=== PATIENT | male | born 1965 | race Caucasian/White ===

== ENCOUNTER 2021-05-07 19:33 | Inpatient (IN) | payer BC ==
[~2021-05-07] VITALS: Ht 165.1 cm; Wt 109.6 kg
[2021-05-07 21:36] LABS: Basophils # (auto) 0.1 10 ^3/uL (0-0.2); Basophils % (auto) 1.1 % (0.0-2.0); Eosinophils # (auto) 0 10 ^3/uL (0-0.8); Eosinophils % (auto) 0.1 % (0.0-7.0); Hematocrit 41.8 % (41.0-53.0); Hemoglobin 14.5 g/dL (13.5-17.5); Lymphocytes # (auto) 0.5 10 ^3/uL (0.4-5.4); Lymphocytes % (auto) 7.5 % (10.0-50.0); Mean Corpuscular Hemoglobin 30.7 pg (28.0-32.0); Mean Corpuscular Hgb Conc. 34.5 g/dL (32.0-36.0); Mean Corpuscular Volume 88.8 fL (80.0-100.0); Monocytes # (auto) 0.6 10 ^3/uL (0-1.3); Monocytes % (auto) 9.8 % (0.0-12.0); Neutrophils # (auto) 5.3 10 ^3/uL (1.6-8.6); Neutrophils % (auto) 81.5 % (37.0-80.0); Red Blood Cells 4.71 10^6/uL (4.5-5.90); Red Cell Distribution Width 12.9 % (11.8-14.3); White Blood Cell 6.5 10^3/uL (4.4-10.8)
[2021-05-07 21:55] LABS: Potassium 3.7 mmol/L (3.5-5.1)
[2021-05-07 22:09] LABS: Albumin 2.3 g/dL (3.4-5.0); BUN/Creatinine Ratio 18.2; Bilirubin, Total 0.8 mg/dL (0.2-1.0); Calcium 7.9 mg/dL (8.5-10.1); Total Protein 7.2 g/dL (6.4-8.2)
[2021-05-07 23:04] LABS: Lactic Acid w/Reflex 3.1 mmol/L (0.4-2.0)
[2021-05-08] VITALS (9 sets, daily range): BP systolic 87–102; BP diastolic 51–67
[2021-05-08] MEDS ORDERED: SUCCINYLCHOLINE CHLORIDE 20 MG/ML 10ML VIAL IV ONE ×2 (00:23→00:45)
[2021-05-08] MEDS ORDERED: KETAMINE HCL 10 ML ONE (00:26)
[2021-05-08] MEDS ORDERED: KETAMINE 50mg/ML 10ml Vial (500mg/10ml) IV ONE (00:45)
[2021-05-08] MEDS ORDERED: DexAMETHasone SOD PHOS 10MG/1ML VIAL INJ IV ONE (00:45)
[2021-05-08] MEDS ORDERED: MIDAZOLAM DRIP 50 mg/50mL 50 ML IV ONE (00:56)
[2021-05-08] MEDS: fentaNYL Drip 2500mCg/250mlNS 250 ML IV SCH (01:39)
[2021-05-08] MEDS: MIDAZOLAM DRIP 50 mg/50mL 50 ML IV SCH ×2 (01:39→22:50)
[2021-05-08] MEDS ORDERED: IOHEXOL 350 MG/ML 100ML IJ ONE (01:45)
[2021-05-08] MEDS: NOREPINEPHRINE 8 MG/250ML KIT 250 ML IV SCH ×2 (03:15→05:27)
[2021-05-08] MEDS: MAGNESIUM SULFATE 1GM/100ML 100 ML IV SCH ×2 (04:02→05:26)
[2021-05-08] MEDS ORDERED: MORPHINE SULFATE INJECTION 2 MG/ML SYRG IV PRN (06:30)
[2021-05-08] MEDS ORDERED: ONDANSETRON HCL 4 MG/2 ML VIAL IV PRN (06:30)
[2021-05-08] MEDS ORDERED: ALBUTEROL SULF HFA 90MCG INH 200DOSE IN PRN (06:30)
[2021-05-08] MEDS ORDERED: REMDESIVIR PER PHARMACY 0 ML IV SCH (06:30)
[2021-05-08] MEDS ORDERED: NITROGLYCERIN 0.4 MG SL TAB SL PRN (06:30)
[2021-05-08] MEDS ORDERED: SODIUM CHLORIDE 0.9% 1,000 ML IV SCH (06:30)
[2021-05-08] MEDS: cefTRIAXone 1GM/50ML D5W 50 ML IV SCH ×3 (07:04→08:52)
[2021-05-08 08:32] LABS: CRP High Sensitivity 16.2 mg/dL (< 0.3)
[2021-05-08 08:41] LABS: Magnesium 4.3 mg/dL (1.6-2.6)
[2021-05-08] MEDS: DexAMETHasone SOD PHOS 10MG/1ML VIAL INJ IV SCH (10:07)
[2021-05-08] MEDS: ENOXAPARIN SOD 40 MG/0.4 ML SYRINGE SC SCH ×2 (10:08→22:49)
[2021-05-08] MEDS: PANTOPRAZOLE 40 MG/10 ML VIAL INJ IV SCH (10:08)
[2021-05-08] MEDS: AZITHROMYCIN 500MG/ 250ML 250 ML IV SCH (10:27)
[2021-05-09] VITALS (43 sets, daily range): BP systolic 90–148; BP diastolic 55–83
[2021-05-09] MEDS: fentaNYL Drip 2500mCg/250mlNS 250 ML IV SCH (01:00)
[2021-05-09] MEDS: NOREPINEPHRINE 8 MG/250ML KIT 250 ML IV SCH (03:15)
[2021-05-09] MEDS: MIDAZOLAM DRIP 50 mg/50mL 50 ML IV SCH ×5 (03:49→21:31)
[2021-05-09] MEDS: cefTRIAXone 1GM/50ML D5W 50 ML IV SCH (08:49)
[2021-05-09 08:56] LABS: Basophils # (auto) 0 10 ^3/uL (0-0.2); Basophils % (auto) 0.2 % (0.0-2.0); Eosinophils # (auto) 0 10 ^3/uL (0-0.8); Hematocrit 40.1 % (41.0-53.0); Hemoglobin 13.4 g/dL (13.5-17.5); Lymphocytes # (auto) 0.5 10 ^3/uL (0.4-5.4); Lymphocytes % (auto) 6.3 % (10.0-50.0); Mean Corpuscular Hemoglobin 30.5 pg (28.0-32.0); Mean Corpuscular Hgb Conc. 33.4 g/dL (32.0-36.0); Mean Corpuscular Volume 91.4 fL (80.0-100.0); Neutrophils % (auto) 81.5 % (37.0-80.0); Red Blood Cells 4.39 10^6/uL (4.5-5.90); Red Cell Distribution Width 12.8 % (11.8-14.3); White Blood Cell 8.6 10^3/uL (4.4-10.8)
[2021-05-09 09:30] LABS: Albumin 2.1 g/dL (3.4-5.0); Potassium 4.5 mmol/L (3.5-5.1)
[2021-05-09 09:32] LABS: BUN/Creatinine Ratio 27.3; Bilirubin, Total 0.4 mg/dL (0.2-1.0); Total Protein 7.3 g/dL (6.4-8.2)
[2021-05-09] MEDS ORDERED: REMDESIVIR 200 MG in NS 210ml LOADING DOSE ADULT IV ONE (10:00)
[2021-05-09 10:28] LABS: Magnesium 4.2 mg/dL (1.6-2.6)
[2021-05-09] MEDS ORDERED: INSULIN LANTUS (GLARGINE) 1 /0.01ml (100units/ml) SC ONE (12:00)
[2021-05-09] MEDS: ACCU-CHEK COMFORT CURVE STRIP VI SCH ×2 (12:00→17:23)
[2021-05-09] MEDS: InsuLIN REG 1unit/0.01ml Soln (100units/ml) SC SCH ×2 (12:00→17:23)
[2021-05-09] MEDS ORDERED: DEXTROSE (50%) 50ML SYRG IV PRN (12:00)
[2021-05-09] MEDS: PANTOPRAZOLE 40 MG/10 ML VIAL INJ IV SCH (12:09)
[2021-05-09] MEDS: DexAMETHasone SOD PHOS 10MG/1ML VIAL INJ IV SCH (12:09)
[2021-05-09] MEDS: ENOXAPARIN SOD 40 MG/0.4 ML SYRINGE SC SCH ×2 (12:09→21:30)
[2021-05-09] MEDS: FUROSEMIDE 20 MG/2 ML VIAL IV SCH ×2 (13:14→17:47)
[2021-05-09] MEDS: AZITHROMYCIN 500MG/ 250ML 250 ML IV SCH (13:45)
[2021-05-10] VITALS (92 sets, daily range): BP systolic 87–133; BP diastolic 54–89
[2021-05-10] MEDS: InsuLIN REG 1unit/0.01ml Soln (100units/ml) SC SCH ×4 (00:24→17:05)
[2021-05-10] MEDS: ACCU-CHEK COMFORT CURVE STRIP VI SCH ×4 (00:24→17:11)
[2021-05-10] MEDS: fentaNYL Drip 2500mCg/250mlNS 250 ML IV SCH ×2 (02:13→14:27)
[2021-05-10] MEDS: NOREPINEPHRINE 8 MG/250ML KIT 250 ML IV SCH ×2 (03:15→17:05)
[2021-05-10 04:34] LABS: Basophils # (auto) 0 10 ^3/uL (0-0.2); Basophils % (auto) 0.2 % (0.0-2.0); Eosinophils # (auto) 0 10 ^3/uL (0-0.8); Hematocrit 39.2 % (41.0-53.0); Hemoglobin 13.1 g/dL (13.5-17.5); Lymphocytes # (auto) 0.6 10 ^3/uL (0.4-5.4); Lymphocytes % (auto) 5.3 % (10.0-50.0); Mean Corpuscular Hemoglobin 30.4 pg (28.0-32.0); Mean Corpuscular Hgb Conc. 33.6 g/dL (32.0-36.0); Mean Corpuscular Volume 90.7 fL (80.0-100.0); Monocytes # (auto) 1.6 10 ^3/uL (0-1.3); Monocytes % (auto) 13.5 % (0.0-12.0); Neutrophils # (auto) 9.4 10 ^3/uL (1.6-8.6); Red Blood Cells 4.32 10^6/uL (4.5-5.90); Red Cell Distribution Width 13.2 % (11.8-14.3); White Blood Cell 11.6 10^3/uL (4.4-10.8)
[2021-05-10 04:49] LABS: Potassium 4.2 mmol/L (3.5-5.1)
[2021-05-10 04:54] LABS: BUN/Creatinine Ratio 35.6; Bilirubin, Total 0.3 mg/dL (0.2-1.0); Calcium 7.5 mg/dL (8.5-10.1); Total Protein 6.4 g/dL (6.4-8.2)
[2021-05-10] MEDS: MIDAZOLAM DRIP 50 mg/50mL 50 ML IV SCH ×4 (05:17→15:36)
[2021-05-10] MEDS: FUROSEMIDE 20 MG/2 ML VIAL IV SCH ×2 (06:28→17:20)
[2021-05-10] MEDS: cefTRIAXone 1GM/50ML D5W 50 ML IV SCH (09:00)
[2021-05-10] MEDS: AZITHROMYCIN 500MG/ 250ML 250 ML IV SCH (09:32)
[2021-05-10] MEDS: PANTOPRAZOLE 40 MG/10 ML VIAL INJ IV SCH (09:32)
[2021-05-10] MEDS: DexAMETHasone SOD PHOS 10MG/1ML VIAL INJ IV SCH (09:33)
[2021-05-10] MEDS: ENOXAPARIN SOD 40 MG/0.4 ML SYRINGE SC SCH ×2 (09:35→21:10)
[2021-05-10] MEDS: INSULIN LANTUS (GLARGINE) 1 /0.01ml (100units/ml) SC SCH (09:38)
[2021-05-10] MEDS: REMDESIVIR 100mg 100 MG in SODIUM CHL 0.9% 230 ML IV SCH (15:07)
[2021-05-11] VITALS (69 sets, daily range): BP systolic 89–129; BP diastolic 51–86
[2021-05-11] MEDS: ACCU-CHEK COMFORT CURVE STRIP VI SCH ×5 (00:34→23:49)
[2021-05-11] MEDS: MIDAZOLAM DRIP 50 mg/50mL 50 ML IV SCH ×5 (00:36→19:11)
[2021-05-11] MEDS: InsuLIN REG 1unit/0.01ml Soln (100units/ml) SC SCH ×5 (00:36→23:50)
[2021-05-11] MEDS: fentaNYL Drip 2500mCg/250mlNS 250 ML IV SCH ×2 (02:17→13:25)
[2021-05-11] MEDS ORDERED: VANCOMYCIN PER PHARMACY 0 MG IV SCH (03:30)
[2021-05-11] MEDS ORDERED: VANCOMYCIN 1,500 MG in D5W 5% 250 ML IV ONE (03:30)
[2021-05-11 04:30] LABS: Albumin 1.8 g/dL (3.4-5.0); BUN/Creatinine Ratio 35.9; Calcium 7.5 mg/dL (8.5-10.1); Potassium 4.4 mmol/L (3.5-5.1)
[2021-05-11 04:32] LABS: Bilirubin, Total 0.3 mg/dL (0.2-1.0)
[2021-05-11 05:02] LABS: Basophils # (auto) 0 10 ^3/uL (0-0.2); Basophils % (auto) 0.1 % (0.0-2.0); Eosinophils # (auto) 0 10 ^3/uL (0-0.8); Hematocrit 39.2 % (41.0-53.0); Hemoglobin 13.1 g/dL (13.5-17.5); Lymphocytes # (auto) 0.4 10 ^3/uL (0.4-5.4); Mean Corpuscular Hemoglobin 30.3 pg (28.0-32.0); Mean Corpuscular Hgb Conc. 33.4 g/dL (32.0-36.0); Mean Corpuscular Volume 90.9 fL (80.0-100.0); Monocytes % (auto) 13.1 % (0.0-12.0); Neutrophils # (auto) 6.1 10 ^3/uL (1.6-8.6); Neutrophils % (auto) 80.8 % (37.0-80.0); Nucleated Red Blood Cells % 0.1 %; Red Blood Cells 4.31 10^6/uL (4.5-5.90); White Blood Cell 7.5 10^3/uL (4.4-10.8)
[2021-05-11] MEDS: FUROSEMIDE 20 MG/2 ML VIAL IV SCH ×2 (06:23→17:26)
[2021-05-11] MEDS: cefTRIAXone 1GM/50ML D5W 50 ML IV SCH (08:04)
[2021-05-11] MEDS: PANTOPRAZOLE 40 MG/10 ML VIAL INJ IV SCH (10:06)
[2021-05-11] MEDS: DexAMETHasone SOD PHOS 10MG/1ML VIAL INJ IV SCH (10:06)
[2021-05-11] MEDS: ZINC SULFATE 220mg CAP or TAB PO SCH (10:07)
[2021-05-11] MEDS: AZITHROMYCIN 500MG/ 250ML 250 ML IV SCH (10:07)
[2021-05-11] MEDS: CHOLECALCIFEROL (VITD3) 2,000 UNIT CAP/TAB PO SCH (10:08)
[2021-05-11] MEDS: ASCORBIC ACID 500 MG TAB PO SCH (10:08)
[2021-05-11] MEDS: INSULIN LANTUS (GLARGINE) 1 /0.01ml (100units/ml) SC SCH (10:09)
[2021-05-11] MEDS: ENOXAPARIN SOD 40 MG/0.4 ML SYRINGE SC SCH ×2 (10:10→22:34)
[2021-05-11] MEDS: REMDESIVIR 100mg 100 MG in SODIUM CHL 0.9% 230 ML IV SCH (15:00)
[2021-05-11] MEDS: VANCOMYCIN 1GM/250ML 250 ML IV SCH (17:27)
[2021-05-12] VITALS (43 sets, daily range): BP systolic 90–132; BP diastolic 58–89
[2021-05-12] MEDS: VANCOMYCIN 1GM/250ML 250 ML IV SCH ×3 (02:49→23:22)
[2021-05-12] MEDS: NOREPINEPHRINE 8 MG/250ML KIT 250 ML IV SCH (02:49)
[2021-05-12] MEDS: fentaNYL Drip 2500mCg/250mlNS 250 ML IV SCH ×3 (02:52→23:20)
[2021-05-12 04:17] LABS: Basophils # (auto) 0 10 ^3/uL (0-0.2); Basophils % (auto) 0.3 % (0.0-2.0); Eosinophils # (auto) 0 10 ^3/uL (0-0.8); Hematocrit 41.5 % (41.0-53.0); Hemoglobin 13.8 g/dL (13.5-17.5); Lymphocytes % (auto) 11.6 % (10.0-50.0); Mean Corpuscular Hemoglobin 30.2 pg (28.0-32.0); Mean Corpuscular Hgb Conc. 33.2 g/dL (32.0-36.0); Monocytes # (auto) 1.2 10 ^3/uL (0-1.3); Monocytes % (auto) 14.5 % (0.0-12.0); Neutrophils # (auto) 6.2 10 ^3/uL (1.6-8.6); Neutrophils % (auto) 73.6 % (37.0-80.0); Nucleated Red Blood Cells % 0.3 %; Red Blood Cells 4.56 10^6/uL (4.5-5.90); Red Cell Distribution Width 13.3 % (11.8-14.3); White Blood Cell 8.5 10^3/uL (4.4-10.8)
[2021-05-12 04:29] LABS: Calcium 7.5 mg/dL (8.5-10.1); Potassium 4.4 mmol/L (3.5-5.1)
[2021-05-12 04:38] LABS: BUN/Creatinine Ratio 35.3; Bilirubin, Total 0.4 mg/dL (0.2-1.0); CRP High Sensitivity 3.47 mg/dL (< 0.3); Total Protein 6.2 g/dL (6.4-8.2)
[2021-05-12] MEDS: ACCU-CHEK COMFORT CURVE STRIP VI SCH ×3 (06:53→17:46)
[2021-05-12] MEDS: InsuLIN REG 1unit/0.01ml Soln (100units/ml) SC SCH ×3 (06:54→17:46)
[2021-05-12] MEDS: FUROSEMIDE 20 MG/2 ML VIAL IV SCH ×2 (06:54→17:12)
[2021-05-12] MEDS: cefTRIAXone 1GM/50ML D5W 50 ML IV SCH (08:45)
[2021-05-12] MEDS: MIDAZOLAM DRIP 50 mg/50mL 50 ML IV SCH ×3 (08:46→23:21)
[2021-05-12] MEDS: AZITHROMYCIN 500MG/ 250ML 250 ML IV SCH (09:30)
[2021-05-12] MEDS: ASCORBIC ACID 500 MG TAB PO SCH (09:31)
[2021-05-12] MEDS: CHOLECALCIFEROL (VITD3) 2,000 UNIT CAP/TAB PO SCH (09:32)
[2021-05-12] MEDS: ENOXAPARIN SOD 40 MG/0.4 ML SYRINGE SC SCH ×2 (09:33→23:15)
[2021-05-12] MEDS: DexAMETHasone SOD PHOS 10MG/1ML VIAL INJ IV SCH (09:33)
[2021-05-12] MEDS: ZINC SULFATE 220mg CAP or TAB PO SCH (09:33)
[2021-05-12] MEDS: PANTOPRAZOLE 40 MG/10 ML VIAL INJ IV SCH (09:33)
[2021-05-12] MEDS: INSULIN LANTUS (GLARGINE) 1 /0.01ml (100units/ml) SC SCH (09:36)
[2021-05-12] MEDS: REMDESIVIR 100mg 100 MG in SODIUM CHL 0.9% 230 ML IV SCH (15:00)
[2021-05-12] MEDS: Glucerna 1.2 Cal 1Liter BOTTLE GT SCH (17:13)
[2021-05-12] MEDS: ACETAMINOPHEN 500 MG TAB PO PRN (17:14)
[2021-05-13] VITALS (51 sets, daily range): BP systolic 92–157; BP diastolic 53–83
[2021-05-13] MEDS: InsuLIN REG 1unit/0.01ml Soln (100units/ml) SC SCH ×5 (01:13→23:46)
[2021-05-13] MEDS: ACCU-CHEK COMFORT CURVE STRIP VI SCH ×5 (01:13→23:38)
[2021-05-13] MEDS: NOREPINEPHRINE 8 MG/250ML KIT 250 ML IV SCH (01:17)
[2021-05-13 04:18] LABS: Basophils # (auto) 0 10 ^3/uL (0-0.2); Basophils % (auto) 0.1 % (0.0-2.0); Eosinophils # (auto) 0 10 ^3/uL (0-0.8); Hematocrit 41.7 % (41.0-53.0); Lymphocytes # (auto) 0.7 10 ^3/uL (0.4-5.4); Lymphocytes % (auto) 9.9 % (10.0-50.0); Mean Corpuscular Hemoglobin 30.8 pg (28.0-32.0); Mean Corpuscular Hgb Conc. 33.7 g/dL (32.0-36.0); Mean Corpuscular Volume 91.5 fL (80.0-100.0); Monocytes # (auto) 1.2 10 ^3/uL (0-1.3); Monocytes % (auto) 15.7 % (0.0-12.0); Neutrophils # (auto) 5.6 10 ^3/uL (1.6-8.6); Neutrophils % (auto) 74.3 % (37.0-80.0); Red Blood Cells 4.56 10^6/uL (4.5-5.90); Red Cell Distribution Width 13.4 % (11.8-14.3); White Blood Cell 7.6 10^3/uL (4.4-10.8)
[2021-05-13 04:42] LABS: Albumin 1.9 g/dL (3.4-5.0); Potassium 4.3 mmol/L (3.5-5.1)
[2021-05-13 04:45] LABS: BUN/Creatinine Ratio 36.9
[2021-05-13 04:48] LABS: Bilirubin, Total 0.4 mg/dL (0.2-1.0)
[2021-05-13] MEDS: FUROSEMIDE 20 MG/2 ML VIAL IV SCH ×2 (05:26→18:04)
[2021-05-13] MEDS: cefTRIAXone 1GM/50ML D5W 50 ML IV SCH (09:29)
[2021-05-13] MEDS: VANCOMYCIN 1GM/250ML 250 ML IV SCH ×2 (10:01→18:04)
[2021-05-13] MEDS: DexAMETHasone SOD PHOS 10MG/1ML VIAL INJ IV SCH (11:16)
[2021-05-13] MEDS: ZINC SULFATE 220mg CAP or TAB PO SCH (11:16)
[2021-05-13] MEDS: PANTOPRAZOLE 40 MG/10 ML VIAL INJ IV SCH (11:16)
[2021-05-13] MEDS: ASCORBIC ACID 500 MG TAB PO SCH (11:16)
[2021-05-13] MEDS: CHOLECALCIFEROL (VITD3) 2,000 UNIT CAP/TAB PO SCH (11:17)
[2021-05-13] MEDS: ENOXAPARIN SOD 40 MG/0.4 ML SYRINGE SC SCH ×2 (11:17→23:38)
[2021-05-13] MEDS: INSULIN LANTUS (GLARGINE) 1 /0.01ml (100units/ml) SC SCH (12:53)
[2021-05-13] MEDS ORDERED: DEXTROSE (50%) 50ML SYRG IV PRN (12:58)
[2021-05-13] MEDS: REMDESIVIR 100mg 100 MG in SODIUM CHL 0.9% 230 ML IV SCH (15:25)
[2021-05-13] MEDS: MIDAZOLAM DRIP 50 mg/50mL 50 ML IV SCH (23:39)
[2021-05-14] VITALS (64 sets, daily range): BP systolic 87–129; BP diastolic 48–83
[2021-05-14] MEDS: fentaNYL Drip 2500mCg/250mlNS 250 ML IV SCH (01:00)
[2021-05-14] MEDS: NOREPINEPHRINE 8 MG/250ML KIT 250 ML IV SCH (03:15)
[2021-05-14 03:39] LABS: Basophils # (auto) 0 10 ^3/uL (0-0.2); Basophils % (auto) 0.2 % (0.0-2.0); Eosinophils # (auto) 0 10 ^3/uL (0-0.8); Eosinophils % (auto) 0.1 % (0.0-7.0); Hematocrit 41.7 % (41.0-53.0); Hemoglobin 13.9 g/dL (13.5-17.5); Lymphocytes # (auto) 0.7 10 ^3/uL (0.4-5.4); Lymphocytes % (auto) 9.7 % (10.0-50.0); Mean Corpuscular Hemoglobin 30.2 pg (28.0-32.0); Mean Corpuscular Hgb Conc. 33.4 g/dL (32.0-36.0); Mean Corpuscular Volume 90.5 fL (80.0-100.0); Monocytes # (auto) 0.9 10 ^3/uL (0-1.3); Monocytes % (auto) 12.6 % (0.0-12.0); Neutrophils # (auto) 5.6 10 ^3/uL (1.6-8.6); Neutrophils % (auto) 77.4 % (37.0-80.0); Nucleated Red Blood Cells % 0.1 %; Red Blood Cells 4.61 10^6/uL (4.5-5.90); White Blood Cell 7.2 10^3/uL (4.4-10.8)
[2021-05-14 04:04] LABS: Potassium 4.6 mmol/L (3.5-5.1)
[2021-05-14 04:08] LABS: Albumin 1.8 g/dL (3.4-5.0); BUN/Creatinine Ratio 49.1; Bilirubin, Total 0.4 mg/dL (0.2-1.0); Magnesium 2.3 mg/dL (1.6-2.6); Total Protein 5.8 g/dL (6.4-8.2)
[2021-05-14] MEDS: VANCOMYCIN 1GM/250ML 250 ML IV SCH ×3 (04:16→23:19)
[2021-05-14] MEDS: InsuLIN REG 1unit/0.01ml Soln (100units/ml) SC SCH ×3 (06:25→18:00)
[2021-05-14] MEDS: FUROSEMIDE 20 MG/2 ML VIAL IV SCH ×2 (06:27→18:20)
[2021-05-14] MEDS: ACCU-CHEK COMFORT CURVE STRIP VI SCH ×3 (06:27→18:20)
[2021-05-14] MEDS: cefTRIAXone 1GM/50ML D5W 50 ML IV SCH (09:22)
[2021-05-14] MEDS: DexAMETHasone SOD PHOS 10MG/1ML VIAL INJ IV SCH (09:54)
[2021-05-14] MEDS: PANTOPRAZOLE 40 MG/10 ML VIAL INJ IV SCH (09:54)
[2021-05-14] MEDS: ZINC SULFATE 220mg CAP or TAB PO SCH (09:54)
[2021-05-14] MEDS: CHOLECALCIFEROL (VITD3) 2,000 UNIT CAP/TAB PO SCH (09:55)
[2021-05-14] MEDS: ENOXAPARIN SOD 40 MG/0.4 ML SYRINGE SC SCH ×2 (09:56→23:19)
[2021-05-14] MEDS: ASCORBIC ACID 500 MG TAB PO SCH (09:56)
[2021-05-14] MEDS: INSULIN LANTUS (GLARGINE) 1 /0.01ml (100units/ml) SC SCH (10:19)
[2021-05-14] MEDS: MIDAZOLAM DRIP 50 mg/50mL 50 ML IV SCH ×3 (10:20→23:19)
[2021-05-15] VITALS (57 sets, daily range): BP systolic 84–133; BP diastolic 46–82
[2021-05-15] MEDS: MIDAZOLAM DRIP 50 mg/50mL 50 ML IV SCH (00:39)
[2021-05-15] MEDS: ACCU-CHEK COMFORT CURVE STRIP VI SCH ×4 (00:42→18:01)
[2021-05-15] MEDS: InsuLIN REG 1unit/0.01ml Soln (100units/ml) SC SCH ×4 (00:42→18:01)
[2021-05-15] MEDS: fentaNYL Drip 2500mCg/250mlNS 250 ML IV SCH (00:45)
[2021-05-15] MEDS: NOREPINEPHRINE 8 MG/250ML KIT 250 ML IV SCH ×2 (03:15→13:32)
[2021-05-15 03:50] LABS: Basophils # (auto) 0.1 10 ^3/uL (0-0.2); Basophils % (auto) 0.6 % (0.0-2.0); Eosinophils # (auto) 0 10 ^3/uL (0-0.8); Hematocrit 42.2 % (41.0-53.0); Hemoglobin 14.2 g/dL (13.5-17.5); Lymphocytes # (auto) 1.1 10 ^3/uL (0.4-5.4); Lymphocytes % (auto) 11.6 % (10.0-50.0); Mean Corpuscular Hemoglobin 30.6 pg (28.0-32.0); Mean Corpuscular Hgb Conc. 33.7 g/dL (32.0-36.0); Mean Corpuscular Volume 90.9 fL (80.0-100.0); Monocytes # (auto) 1.1 10 ^3/uL (0-1.3); Monocytes % (auto) 11.5 % (0.0-12.0); Neutrophils # (auto) 7.1 10 ^3/uL (1.6-8.6); Neutrophils % (auto) 76.3 % (37.0-80.0); Red Blood Cells 4.64 10^6/uL (4.5-5.90); Red Cell Distribution Width 13.2 % (11.8-14.3); White Blood Cell 9.3 10^3/uL (4.4-10.8)
[2021-05-15 04:07] LABS: BUN/Creatinine Ratio 36.8; Calcium 8.3 mg/dL (8.5-10.1); Potassium 4.1 mmol/L (3.5-5.1)
[2021-05-15] MEDS: VANCOMYCIN 1GM/250ML 250 ML IV SCH ×2 (05:52→15:09)
[2021-05-15] MEDS: FUROSEMIDE 20 MG/2 ML VIAL IV SCH ×2 (06:46→17:38)
[2021-05-15] MEDS: cefTRIAXone 1GM/50ML D5W 50 ML IV SCH (09:13)
[2021-05-15] MEDS: INSULIN LANTUS (GLARGINE) 1 /0.01ml (100units/ml) SC SCH (10:00)
[2021-05-15] MEDS: PANTOPRAZOLE 40 MG/10 ML VIAL INJ IV SCH (10:02)
[2021-05-15] MEDS: ZINC SULFATE 220mg CAP or TAB PO SCH (10:02)
[2021-05-15] MEDS: ASCORBIC ACID 500 MG TAB PO SCH (10:03)
[2021-05-15] MEDS: CHOLECALCIFEROL (VITD3) 2,000 UNIT CAP/TAB PO SCH (10:03)
[2021-05-15] MEDS: ENOXAPARIN SOD 40 MG/0.4 ML SYRINGE SC SCH (10:04)
[2021-05-15] MEDS: DexAMETHasone SOD PHOS 10MG/1ML VIAL INJ IV SCH (10:04)
[2021-05-16] VITALS (69 sets, daily range): BP systolic 92–189; BP diastolic 56–93
[2021-05-16] MEDS: InsuLIN REG 1unit/0.01ml Soln (100units/ml) SC SCH ×4 (00:18→18:20)
[2021-05-16] MEDS: fentaNYL Drip 2500mCg/250mlNS 250 ML IV SCH (00:30)
[2021-05-16] MEDS: VANCOMYCIN 1GM/250ML 250 ML IV SCH ×3 (00:31→18:23)
[2021-05-16] MEDS: ACCU-CHEK COMFORT CURVE STRIP VI SCH ×4 (00:31→18:21)
[2021-05-16] MEDS: MIDAZOLAM DRIP 50 mg/50mL 50 ML IV SCH (00:32)
[2021-05-16] MEDS: ENOXAPARIN SOD 40 MG/0.4 ML SYRINGE SC SCH ×3 (00:36→21:42)
[2021-05-16 04:08] LABS: Basophils # (auto) 0 10 ^3/uL (0-0.2); Basophils % (auto) 0.2 % (0.0-2.0); Eosinophils # (auto) 0 10 ^3/uL (0-0.8); Eosinophils % (auto) 0.3 % (0.0-7.0); Hematocrit 44.1 % (41.0-53.0); Hemoglobin 14.7 g/dL (13.5-17.5); Lymphocytes # (auto) 0.8 10 ^3/uL (0.4-5.4); Lymphocytes % (auto) 7.6 % (10.0-50.0); Mean Corpuscular Hemoglobin 30.5 pg (28.0-32.0); Mean Corpuscular Hgb Conc. 33.4 g/dL (32.0-36.0); Mean Corpuscular Volume 91.3 fL (80.0-100.0); Monocytes % (auto) 9.2 % (0.0-12.0); Neutrophils # (auto) 9.2 10 ^3/uL (1.6-8.6); Neutrophils % (auto) 82.7 % (37.0-80.0); Nucleated Red Blood Cells % 0.1 %; Red Blood Cells 4.83 10^6/uL (4.5-5.90); Red Cell Distribution Width 13.5 % (11.8-14.3); White Blood Cell 11.1 10^3/uL (4.4-10.8)
[2021-05-16 04:23] LABS: BUN/Creatinine Ratio 33.3; Calcium 8.5 mg/dL (8.5-10.1); Potassium 4.8 mmol/L (3.5-5.1)
[2021-05-16] MEDS: FUROSEMIDE 20 MG/2 ML VIAL IV SCH ×2 (05:55→18:22)
[2021-05-16] MEDS: cefTRIAXone 1GM/50ML D5W 50 ML IV SCH (08:00)
[2021-05-16] MEDS: CHOLECALCIFEROL (VITD3) 2,000 UNIT CAP/TAB PO SCH (11:08)
[2021-05-16] MEDS: ASCORBIC ACID 500 MG TAB PO SCH (11:09)
[2021-05-16] MEDS: ZINC SULFATE 220mg CAP or TAB PO SCH (11:09)
[2021-05-16] MEDS: PANTOPRAZOLE 40 MG/10 ML VIAL INJ IV SCH (11:10)
[2021-05-16] MEDS: DexAMETHasone SOD PHOS 10MG/1ML VIAL INJ IV SCH (11:10)
[2021-05-16] MEDS: INSULIN LANTUS (GLARGINE) 1 /0.01ml (100units/ml) SC SCH (11:12)
[2021-05-17] VITALS (56 sets, daily range): BP systolic 82–148; BP diastolic 48–88
[2021-05-17] MEDS: ACCU-CHEK COMFORT CURVE STRIP VI SCH ×5 (00:22→23:39)
[2021-05-17] MEDS: InsuLIN REG 1unit/0.01ml Soln (100units/ml) SC SCH ×5 (00:23→23:39)
[2021-05-17] MEDS: MIDAZOLAM DRIP 50 mg/50mL 50 ML IV SCH ×2 (01:00→14:02)
[2021-05-17] MEDS: VANCOMYCIN 1GM/250ML 250 ML IV SCH (03:00)
[2021-05-17] MEDS: NOREPINEPHRINE 8 MG/250ML KIT 250 ML IV SCH (03:15)
[2021-05-17 04:59] LABS: Basophils # (auto) 0 10 ^3/uL (0-0.2); Basophils % (auto) 0.1 % (0.0-2.0); Eosinophils # (auto) 0 10 ^3/uL (0-0.8); Hematocrit 40.5 % (41.0-53.0); Hemoglobin 14.1 g/dL (13.5-17.5); Lymphocytes # (auto) 0.8 10 ^3/uL (0.4-5.4); Mean Corpuscular Hemoglobin 31.5 pg (28.0-32.0); Mean Corpuscular Hgb Conc. 34.8 g/dL (32.0-36.0); Mean Corpuscular Volume 90.5 fL (80.0-100.0); Monocytes % (auto) 10.5 % (0.0-12.0); Neutrophils # (auto) 7.8 10 ^3/uL (1.6-8.6); Neutrophils % (auto) 81.4 % (37.0-80.0); Red Blood Cells 4.47 10^6/uL (4.5-5.90); Red Cell Distribution Width 12.8 % (11.8-14.3); White Blood Cell 9.5 10^3/uL (4.4-10.8)
[2021-05-17 05:32] LABS: Calcium 8.6 mg/dL (8.5-10.1); Potassium 3.4 mmol/L (3.5-5.1)
[2021-05-17 05:34] LABS: BUN/Creatinine Ratio 39.3
[2021-05-17] MEDS: fentaNYL Drip 2500mCg/250mlNS 250 ML IV SCH (05:50)
[2021-05-17] MEDS: FUROSEMIDE 20 MG/2 ML VIAL IV SCH ×2 (06:00→19:44)
[2021-05-17] MEDS: PANTOPRAZOLE 40 MG/10 ML VIAL INJ IV SCH (08:48)
[2021-05-17] MEDS: DexAMETHasone SOD PHOS 10MG/1ML VIAL INJ IV SCH (08:49)
[2021-05-17] MEDS: ASCORBIC ACID 500 MG TAB PO SCH (08:50)
[2021-05-17] MEDS: CHOLECALCIFEROL (VITD3) 2,000 UNIT CAP/TAB PO SCH (08:51)
[2021-05-17] MEDS: ENOXAPARIN SOD 40 MG/0.4 ML SYRINGE SC SCH ×2 (08:51→22:38)
[2021-05-17] MEDS: ZINC SULFATE 220mg CAP or TAB PO SCH (08:51)
[2021-05-17] MEDS: cefTRIAXone 1GM/50ML D5W 50 ML IV SCH (08:52)
[2021-05-17] MEDS: INSULIN LANTUS (GLARGINE) 1 /0.01ml (100units/ml) SC SCH (10:40)
[2021-05-18] VITALS (56 sets, daily range): BP systolic 91–134; BP diastolic 54–91
[2021-05-18] MEDS: fentaNYL Drip 2500mCg/250mlNS 250 ML IV SCH (01:00)
[2021-05-18 04:21] LABS: Basophils # (auto) 0 10 ^3/uL (0-0.2); Basophils % (auto) 0.1 % (0.0-2.0); Eosinophils # (auto) 0 10 ^3/uL (0-0.8); Hematocrit 40.1 % (41.0-53.0); Hemoglobin 13.4 g/dL (13.5-17.5); Lymphocytes # (auto) 1.2 10 ^3/uL (0.4-5.4); Lymphocytes % (auto) 10.7 % (10.0-50.0); Mean Corpuscular Hemoglobin 30.4 pg (28.0-32.0); Mean Corpuscular Hgb Conc. 33.4 g/dL (32.0-36.0); Monocytes # (auto) 1.3 10 ^3/uL (0-1.3); Monocytes % (auto) 11.1 % (0.0-12.0); Neutrophils % (auto) 78.1 % (37.0-80.0); Nucleated Red Blood Cells % 0.1 %; Red Blood Cells 4.41 10^6/uL (4.5-5.90); Red Cell Distribution Width 13.1 % (11.8-14.3); White Blood Cell 11.6 10^3/uL (4.4-10.8)
[2021-05-18 04:51] LABS: Calcium 7.9 mg/dL (8.5-10.1); Potassium 3.3 mmol/L (3.5-5.1)
[2021-05-18 04:53] LABS: BUN/Creatinine Ratio 31.3
[2021-05-18] MEDS: FUROSEMIDE 20 MG/2 ML VIAL IV SCH (05:42)
[2021-05-18] MEDS: InsuLIN REG 1unit/0.01ml Soln (100units/ml) SC SCH ×4 (06:42→23:47)
[2021-05-18] MEDS: ACCU-CHEK COMFORT CURVE STRIP VI SCH ×4 (06:43→23:47)
[2021-05-18] MEDS: cefTRIAXone 1GM/50ML D5W 50 ML IV SCH (09:36)
[2021-05-18] MEDS: PANTOPRAZOLE 40 MG/10 ML VIAL INJ IV SCH (09:37)
[2021-05-18] MEDS: DexAMETHasone SOD PHOS 10MG/1ML VIAL INJ IV SCH (09:37)
[2021-05-18] MEDS: CHOLECALCIFEROL (VITD3) 2,000 UNIT CAP/TAB PO SCH (09:43)
[2021-05-18] MEDS: ZINC SULFATE 220mg CAP or TAB PO SCH (09:43)
[2021-05-18] MEDS: ASCORBIC ACID 500 MG TAB PO SCH (09:43)
[2021-05-18] MEDS: ENOXAPARIN SOD 40 MG/0.4 ML SYRINGE SC SCH ×2 (09:44→21:44)
[2021-05-18] MEDS: MIDAZOLAM DRIP 50 mg/50mL 50 ML IV SCH ×2 (09:51→16:11)
[2021-05-18] MEDS: INSULIN LANTUS (GLARGINE) 1 /0.01ml (100units/ml) SC SCH (09:59)
[2021-05-18] MEDS ORDERED: POTASSIUM EFFERVESENT TAB 25 MEQ GT ONE ×2 (10:30→15:30)
[2021-05-18] MEDS: NOREPINEPHRINE 8 MG/250ML KIT 250 ML IV SCH (12:28)
[2021-05-18] MEDS: ERGOCALCIFEROL 50,000 UNIT(1.25MG) CAP PO SCH (12:31)
[2021-05-19] VITALS (50 sets, daily range): BP systolic 84–122; BP diastolic 50–86
[2021-05-19] MEDS: MIDAZOLAM DRIP 50 mg/50mL 50 ML IV SCH ×2 (00:36→05:28)
[2021-05-19] MEDS: fentaNYL Drip 2500mCg/250mlNS 250 ML IV SCH (01:22)
[2021-05-19] MEDS: NOREPINEPHRINE 8 MG/250ML KIT 250 ML IV SCH (03:15)
[2021-05-19 03:40] LABS: Basophils # (auto) 0 10 ^3/uL (0-0.2); Basophils % (auto) 0.1 % (0.0-2.0); Eosinophils # (auto) 0 10 ^3/uL (0-0.8); Hematocrit 41.3 % (41.0-53.0); Hemoglobin 13.5 g/dL (13.5-17.5); Lymphocytes # (auto) 0.9 10 ^3/uL (0.4-5.4); Lymphocytes % (auto) 8.6 % (10.0-50.0); Mean Corpuscular Hemoglobin 29.9 pg (28.0-32.0); Mean Corpuscular Hgb Conc. 32.7 g/dL (32.0-36.0); Mean Corpuscular Volume 91.4 fL (80.0-100.0); Monocytes % (auto) 9.2 % (0.0-12.0); Neutrophils # (auto) 8.9 10 ^3/uL (1.6-8.6); Neutrophils % (auto) 82.1 % (37.0-80.0); Red Blood Cells 4.51 10^6/uL (4.5-5.90); Red Cell Distribution Width 13.2 % (11.8-14.3); White Blood Cell 10.8 10^3/uL (4.4-10.8)
[2021-05-19 04:00] LABS: BUN/Creatinine Ratio 29.6; Magnesium 2.3 mg/dL (1.6-2.6); Potassium 4.2 mmol/L (3.5-5.1)
[2021-05-19] MEDS: ACCU-CHEK COMFORT CURVE STRIP VI SCH ×4 (06:29→23:03)
[2021-05-19] MEDS: InsuLIN REG 1unit/0.01ml Soln (100units/ml) SC SCH ×4 (06:30→23:03)
[2021-05-19] MEDS: cefTRIAXone 1GM/50ML D5W 50 ML IV SCH (11:44)
[2021-05-19] MEDS: DexAMETHasone SOD PHOS 10MG/1ML VIAL INJ IV SCH (11:44)
[2021-05-19] MEDS: PANTOPRAZOLE 40 MG/10 ML VIAL INJ IV SCH (11:45)
[2021-05-19] MEDS: FUROSEMIDE 20 MG/2 ML VIAL IV SCH (11:45)
[2021-05-19] MEDS: ZINC SULFATE 220mg CAP or TAB PO SCH (11:45)
[2021-05-19] MEDS: ASCORBIC ACID 500 MG TAB PO SCH (11:45)
[2021-05-19] MEDS: CHOLECALCIFEROL (VITD3) 2,000 UNIT CAP/TAB PO SCH (11:46)
[2021-05-19] MEDS: INSULIN LANTUS (GLARGINE) 1 /0.01ml (100units/ml) SC SCH (11:47)
[2021-05-19] MEDS: ENOXAPARIN SOD 40 MG/0.4 ML SYRINGE SC SCH ×2 (11:49→20:09)
[2021-05-20] VITALS (40 sets, daily range): BP systolic 78–129; BP diastolic 45–84
[2021-05-20] MEDS: fentaNYL Drip 2500mCg/250mlNS 250 ML IV SCH ×2 (01:00→10:55)
[2021-05-20] MEDS: NOREPINEPHRINE 8 MG/250ML KIT 250 ML IV SCH (03:15)
[2021-05-20] MEDS: ACCU-CHEK COMFORT CURVE STRIP VI SCH ×3 (04:03→12:36)
[2021-05-20] MEDS: InsuLIN REG 1unit/0.01ml Soln (100units/ml) SC SCH ×3 (04:03→19:11)
[2021-05-20] MEDS: cefTRIAXone 1GM/50ML D5W 50 ML IV SCH ×2 (09:36→12:07)
[2021-05-20] MEDS: DexAMETHasone SOD PHOS 10MG/1ML VIAL INJ IV SCH (09:36)
[2021-05-20] MEDS: ZINC SULFATE 220mg CAP or TAB PO SCH (09:37)
[2021-05-20] MEDS: PANTOPRAZOLE 40 MG/10 ML VIAL INJ IV SCH (09:37)
[2021-05-20] MEDS: FUROSEMIDE 20 MG/2 ML VIAL IV SCH (09:37)
[2021-05-20] MEDS: ASCORBIC ACID 500 MG TAB PO SCH (09:39)
[2021-05-20] MEDS: CHOLECALCIFEROL (VITD3) 2,000 UNIT CAP/TAB PO SCH (09:40)
[2021-05-20] MEDS: ENOXAPARIN SOD 40 MG/0.4 ML SYRINGE SC SCH ×2 (09:42→22:00)
[2021-05-20] MEDS: INSULIN LANTUS (GLARGINE) 1 /0.01ml (100units/ml) SC SCH (10:00)
[2021-05-20] MEDS: MIDAZOLAM DRIP 50 mg/50mL 50 ML IV SCH (18:39)
[2021-05-21] VITALS (100 sets, daily range): BP systolic 78–137; BP diastolic 37–113
[2021-05-21] MEDS: InsuLIN REG 1unit/0.01ml Soln (100units/ml) SC SCH ×4 (01:47→18:22)
[2021-05-21 04:19] LABS: Basophils # (auto) 0 10 ^3/uL (0-0.2); Eosinophils # (auto) 0 10 ^3/uL (0-0.8); Hematocrit 48.1 % (41.0-53.0); Hemoglobin 15.8 g/dL (13.5-17.5); Lymphocytes # (auto) 0.9 10 ^3/uL (0.4-5.4); Lymphocytes % (auto) 7.3 % (10.0-50.0); Mean Corpuscular Volume 90.9 fL (80.0-100.0); Monocytes # (auto) 1.3 10 ^3/uL (0-1.3); Monocytes % (auto) 9.9 % (0.0-12.0); Neutrophils # (auto) 10.5 10 ^3/uL (1.6-8.6); Neutrophils % (auto) 82.8 % (37.0-80.0); Red Blood Cells 5.28 10^6/uL (4.5-5.90); Red Cell Distribution Width 13.4 % (11.8-14.3); White Blood Cell 12.7 10^3/uL (4.4-10.8)
[2021-05-21 05:04] LABS: Albumin 2.5 g/dL (3.4-5.0); BUN/Creatinine Ratio 38.3; Bilirubin, Total 0.8 mg/dL (0.2-1.0); Calcium 8.8 mg/dL (8.5-10.1); Total Protein 7.4 g/dL (6.4-8.2)
[2021-05-21] MEDS: ACCU-CHEK COMFORT CURVE STRIP VI SCH ×4 (06:47→18:22)
[2021-05-21] MEDS: NOREPINEPHRINE 8 MG/250ML KIT 250 ML IV SCH ×2 (07:00→20:30)
[2021-05-21] MEDS: FUROSEMIDE 20 MG/2 ML VIAL IV SCH (09:49)
[2021-05-21] MEDS: DexAMETHasone SOD PHOS 10MG/1ML VIAL INJ IV SCH (09:49)
[2021-05-21] MEDS: CHOLECALCIFEROL (VITD3) 2,000 UNIT CAP/TAB PO SCH (09:49)
[2021-05-21] MEDS: ZINC SULFATE 220mg CAP or TAB PO SCH (09:49)
[2021-05-21] MEDS: ASCORBIC ACID 500 MG TAB PO SCH (09:49)
[2021-05-21] MEDS: PANTOPRAZOLE 40 MG/10 ML VIAL INJ IV SCH (09:49)
[2021-05-21] MEDS: ENOXAPARIN SOD 40 MG/0.4 ML SYRINGE SC SCH ×2 (09:49→22:07)
[2021-05-21] MEDS: INSULIN LANTUS (GLARGINE) 1 /0.01ml (100units/ml) SC SCH (10:00)
[2021-05-21] MEDS: Glucerna 1.2 Cal 1Liter BOTTLE GT SCH (14:00)
[2021-05-21] MEDS: MIDAZOLAM DRIP 50 mg/50mL 50 ML IV SCH (14:20)
[2021-05-21] MEDS: fentaNYL Drip 2500mCg/250mlNS 250 ML IV SCH (14:21)
[2021-05-22] VITALS (81 sets, daily range): BP systolic 62–153; BP diastolic 37–94
[2021-05-22] MEDS: MIDAZOLAM DRIP 50 mg/50mL 50 ML IV SCH (04:30)
[2021-05-22 04:34] LABS: Basophils # (auto) 0 10 ^3/uL (0-0.2); Basophils % (auto) 0.2 % (0.0-2.0); Eosinophils # (auto) 0 10 ^3/uL (0-0.8); Eosinophils % (auto) 0.1 % (0.0-7.0); Hemoglobin 12.2 g/dL (13.5-17.5); Lymphocytes # (auto) 1.9 10 ^3/uL (0.4-5.4); Lymphocytes % (auto) 12.7 % (10.0-50.0); Mean Corpuscular Hemoglobin 30.4 pg (28.0-32.0); Mean Corpuscular Hgb Conc. 33.7 g/dL (32.0-36.0); Monocytes # (auto) 1.4 10 ^3/uL (0-1.3); Monocytes % (auto) 9.5 % (0.0-12.0); Neutrophils # (auto) 11.6 10 ^3/uL (1.6-8.6); Neutrophils % (auto) 77.5 % (37.0-80.0); Red Cell Distribution Width 13.1 % (11.8-14.3)
[2021-05-22 04:47] LABS: Calcium 8.4 mg/dL (8.5-10.1); Potassium 3.4 mmol/L (3.5-5.1)
[2021-05-22 04:49] LABS: BUN/Creatinine Ratio 43.1
[2021-05-22] MEDS: InsuLIN REG 1unit/0.01ml Soln (100units/ml) SC SCH ×4 (06:34→18:17)
[2021-05-22] MEDS: ACCU-CHEK COMFORT CURVE STRIP VI SCH ×4 (06:34→18:15)
[2021-05-22] MEDS: cefTRIAXone 1GM/50ML D5W 50 ML IV SCH (09:00)
[2021-05-22] MEDS: ASCORBIC ACID 500 MG TAB PO SCH (10:20)
[2021-05-22] MEDS: PANTOPRAZOLE 40 MG/10 ML VIAL INJ IV SCH (10:20)
[2021-05-22] MEDS: ZINC SULFATE 220mg CAP or TAB PO SCH (10:20)
[2021-05-22] MEDS: DexAMETHasone SOD PHOS 10MG/1ML VIAL INJ IV SCH (10:20)
[2021-05-22] MEDS: FUROSEMIDE 20 MG/2 ML VIAL IV SCH (10:20)
[2021-05-22] MEDS: ENOXAPARIN SOD 40 MG/0.4 ML SYRINGE SC SCH (10:20)
[2021-05-22] MEDS: CHOLECALCIFEROL (VITD3) 2,000 UNIT CAP/TAB PO SCH (10:20)
[2021-05-22] MEDS: INSULIN LANTUS (GLARGINE) 1 /0.01ml (100units/ml) SC SCH (10:23)
[2021-05-22] MEDS ORDERED: POTASSIUM CHL 20MEQ/50ML 50 ML IV ONE (12:00)
[2021-05-22] MEDS: ACETAMINOPHEN 500 MG TAB PO PRN (12:48)
[2021-05-23] VITALS (60 sets, daily range): BP systolic 91–161; BP diastolic 58–91
[2021-05-23] MEDS: ACCU-CHEK COMFORT CURVE STRIP VI SCH ×4 (00:17→17:53)
[2021-05-23] MEDS: ENOXAPARIN SOD 40 MG/0.4 ML SYRINGE SC SCH ×3 (00:19→23:59)
[2021-05-23] MEDS: InsuLIN REG 1unit/0.01ml Soln (100units/ml) SC SCH ×4 (00:22→17:56)
[2021-05-23] MEDS: NOREPINEPHRINE 8 MG/250ML KIT 250 ML IV SCH (03:15)
[2021-05-23 06:02] LABS: Basophils # (auto) 0 10 ^3/uL (0-0.2); Basophils % (auto) 0.3 % (0.0-2.0); Eosinophils # (auto) 0 10 ^3/uL (0-0.8); Eosinophils % (auto) 0.1 % (0.0-7.0); Hematocrit 42.3 % (41.0-53.0); Hemoglobin 14.3 g/dL (13.5-17.5); Lymphocytes # (auto) 1.5 10 ^3/uL (0.4-5.4); Lymphocytes % (auto) 12.1 % (10.0-50.0); Mean Corpuscular Hemoglobin 30.7 pg (28.0-32.0); Mean Corpuscular Hgb Conc. 33.9 g/dL (32.0-36.0); Mean Corpuscular Volume 90.8 fL (80.0-100.0); Monocytes % (auto) 7.9 % (0.0-12.0); Neutrophils # (auto) 9.9 10 ^3/uL (1.6-8.6); Neutrophils % (auto) 79.6 % (37.0-80.0); Nucleated Red Blood Cells % 0.1 %; Red Blood Cells 4.66 10^6/uL (4.5-5.90); Red Cell Distribution Width 13.2 % (11.8-14.3); White Blood Cell 12.4 10^3/uL (4.4-10.8)
[2021-05-23] MEDS: cefTRIAXone 1GM/50ML D5W 50 ML IV SCH (08:59)
[2021-05-23] MEDS: FUROSEMIDE 20 MG/2 ML VIAL IV SCH (09:42)
[2021-05-23] MEDS: ASCORBIC ACID 500 MG TAB PO SCH (09:42)
[2021-05-23] MEDS: ZINC SULFATE 220mg CAP or TAB PO SCH (09:42)
[2021-05-23] MEDS: CHOLECALCIFEROL (VITD3) 2,000 UNIT CAP/TAB PO SCH (09:42)
[2021-05-23] MEDS: INSULIN LANTUS (GLARGINE) 1 /0.01ml (100units/ml) SC SCH (09:43)
[2021-05-23] MEDS: DexAMETHasone SOD PHOS 10MG/1ML VIAL INJ IV SCH (09:45)
[2021-05-23] MEDS: PANTOPRAZOLE 40 MG/10 ML VIAL INJ IV SCH (10:00)
[2021-05-23] MEDS: fentaNYL Drip 2500mCg/250mlNS 250 ML IV SCH (11:21)
[2021-05-23] MEDS: Glucerna 1.2 Cal 1Liter BOTTLE GT SCH (14:00)
[2021-05-23] MEDS: ACETAMINOPHEN 500 MG TAB PO PRN (17:12)
[2021-05-24] VITALS (34 sets, daily range): BP systolic 95–145; BP diastolic 61–90
[2021-05-24] MEDS: NOREPINEPHRINE 8 MG/250ML KIT 250 ML IV SCH
[2021-05-24] MEDS: fentaNYL Drip 2500mCg/250mlNS 250 ML IV SCH ×3 (00:01→17:46)
[2021-05-24] MEDS: MIDAZOLAM DRIP 50 mg/50mL 50 ML IV SCH ×2 (00:01→17:47)
[2021-05-24] MEDS: InsuLIN REG 1unit/0.01ml Soln (100units/ml) SC SCH ×4 (01:13→17:44)
[2021-05-24 05:20] LABS: Basophils # (auto) 0 10 ^3/uL (0-0.2); Basophils % (auto) 0.4 % (0.0-2.0); Eosinophils # (auto) 0 10 ^3/uL (0-0.8); Eosinophils % (auto) 0.4 % (0.0-7.0); Hemoglobin 14.8 g/dL (13.5-17.5); Lymphocytes # (auto) 1.6 10 ^3/uL (0.4-5.4); Mean Corpuscular Hemoglobin 30.6 pg (28.0-32.0); Mean Corpuscular Hgb Conc. 33.6 g/dL (32.0-36.0); Mean Corpuscular Volume 91.1 fL (80.0-100.0); Monocytes # (auto) 0.9 10 ^3/uL (0-1.3); Monocytes % (auto) 7.3 % (0.0-12.0); Neutrophils # (auto) 9.1 10 ^3/uL (1.6-8.6); Neutrophils % (auto) 77.9 % (37.0-80.0); Nucleated Red Blood Cells % 0.1 %; Red Blood Cells 4.83 10^6/uL (4.5-5.90); Red Cell Distribution Width 13.3 % (11.8-14.3); White Blood Cell 11.7 10^3/uL (4.4-10.8)
[2021-05-24] MEDS: ACCU-CHEK COMFORT CURVE STRIP VI SCH ×4 (05:20→17:44)
[2021-05-24 05:24] LABS: Chloride 107 mmol/L (98-107); Potassium 4.3 mmol/L (3.5-5.1); Sodium 141 mmol/L (136-145)
[2021-05-24] MEDS: ACETAMINOPHEN 500 MG TAB PO PRN ×2 (05:27→17:30)
[2021-05-24 05:28] LABS: Alanine Aminotransferase 30 U/L (16-61); Albumin 2.1 g/dL (3.4-5.0); Anion Gap 7 (5-15); BUN/Creatinine Ratio 32.9; Blood Urea Nitrogen 24 mg/dL (7-18); Calcium 8.8 mg/dL (8.5-10.1); Carbon Dioxide 27 mmol/L (21-32); GFR African American 142 mL/min; GFR Non-African American 118 mL/min; Glucose 197 mg/dL (74-106); Magnesium 2.5 mg/dL (1.6-2.6)
[2021-05-24 05:30] LABS: Alkaline Phosphatase 77 U/L (45-117); Aspartate Aminotransferase 23 U/L (15-37); Bilirubin, Total 0.7 mg/dL (0.2-1.0); Total Protein 7.4 g/dL (6.4-8.2)
[2021-05-24] MEDS: DexAMETHasone SOD PHOS 10MG/1ML VIAL INJ IV SCH (09:26)
[2021-05-24] MEDS: cefTRIAXone 1GM/50ML D5W 50 ML IV SCH (09:26)
[2021-05-24] MEDS: FUROSEMIDE 20 MG/2 ML VIAL IV SCH (09:27)
[2021-05-24] MEDS: PANTOPRAZOLE 40 MG/10 ML VIAL INJ IV SCH (09:27)
[2021-05-24] MEDS: ZINC SULFATE 220mg CAP or TAB PO SCH (09:28)
[2021-05-24] MEDS: CHOLECALCIFEROL (VITD3) 2,000 UNIT CAP/TAB PO SCH (09:28)
[2021-05-24] MEDS: ENOXAPARIN SOD 40 MG/0.4 ML SYRINGE SC SCH (09:29)
[2021-05-24] MEDS: ASCORBIC ACID 500 MG TAB PO SCH (09:30)
[2021-05-24] MEDS: INSULIN LANTUS (GLARGINE) 1 /0.01ml (100units/ml) SC SCH (10:06)
[2021-05-25] VITALS (25 sets, daily range): BP systolic 100–150; BP diastolic 57–95
[2021-05-25] MEDS: NOREPINEPHRINE 8 MG/250ML KIT 250 ML IV SCH (00:01)
[2021-05-25] MEDS: InsuLIN REG 1unit/0.01ml Soln (100units/ml) SC SCH ×4 (01:23→18:00)
[2021-05-25] MEDS: MIDAZOLAM DRIP 50 mg/50mL 50 ML IV SCH ×4 (01:23→19:00)
[2021-05-25] MEDS: Glucerna 1.2 Cal 1Liter BOTTLE GT SCH (01:23)
[2021-05-25] MEDS: ACETAMINOPHEN 500 MG TAB PO PRN (01:25)
[2021-05-25] MEDS: ACCU-CHEK COMFORT CURVE STRIP VI SCH ×4 (05:15→18:00)
[2021-05-25] MEDS ORDERED: DOPamine 1600MCG/ML D5W 250 ML IV ONE (09:05)
[2021-05-25] MEDS ORDERED: LORazepam 2MG/ML-1ML VIAL IV ONE (09:30)
[2021-05-25] MEDS: DOPamine 1600MCG/ML D5W 250 ML IV SCH ×2 (09:30→20:37)
[2021-05-25 10:00] LABS: Urine Bacteria NONE SEEN /hpf (None Seen); Urine Blood 1+ /uL (Negative); Urine Mucus FEW (None Seen); Urine Specific Gravity 1.044 (1.001-1.035); Urine WBC 9 /hpf (0 - 3)
[2021-05-25] MEDS: DexAMETHasone SOD PHOS 10MG/1ML VIAL INJ IV SCH (11:06)
[2021-05-25] MEDS: FUROSEMIDE 20 MG/2 ML VIAL IV SCH (11:06)
[2021-05-25] MEDS: PANTOPRAZOLE 40 MG/10 ML VIAL INJ IV SCH (11:07)
[2021-05-25] MEDS: CHOLECALCIFEROL (VITD3) 2,000 UNIT CAP/TAB PO SCH (11:07)
[2021-05-25] MEDS: ENOXAPARIN SOD 40 MG/0.4 ML SYRINGE SC SCH ×3 (11:07→22:49)
[2021-05-25] MEDS: ASCORBIC ACID 500 MG TAB PO SCH (11:07)
[2021-05-25] MEDS: ZINC SULFATE 220mg CAP or TAB PO SCH (11:07)
[2021-05-25] MEDS: INSULIN LANTUS (GLARGINE) 1 /0.01ml (100units/ml) SC SCH (11:10)
[2021-05-25] MEDS: ERGOCALCIFEROL 50,000 UNIT(1.25MG) CAP PO SCH (13:15)
[2021-05-26] VITALS (50 sets, daily range): BP systolic 100–139; BP diastolic 61–106
[2021-05-26] MEDS: InsuLIN REG 1unit/0.01ml Soln (100units/ml) SC SCH ×5 (01:41→18:59)
[2021-05-26] MEDS: ACCU-CHEK COMFORT CURVE STRIP VI SCH ×8 (02:36→23:31)
[2021-05-26] MEDS: NOREPINEPHRINE 8 MG/250ML KIT 250 ML IV SCH (03:15)
[2021-05-26] MEDS: MIDAZOLAM DRIP 50 mg/50mL 50 ML IV SCH ×2 (04:00)
[2021-05-26 04:26] LABS: Basophils # (auto) 0 10 ^3/uL (0-0.2); Basophils % (auto) 0.2 % (0.0-2.0); Eosinophils # (auto) 0 10 ^3/uL (0-0.8); Hematocrit 39.8 % (41.0-53.0); Hemoglobin 13.9 g/dL (13.5-17.5); Lymphocytes # (auto) 1.2 10 ^3/uL (0.4-5.4); Lymphocytes % (auto) 14.1 % (10.0-50.0); Mean Corpuscular Hemoglobin 31.7 pg (28.0-32.0); Mean Corpuscular Volume 90.4 fL (80.0-100.0); Monocytes # (auto) 0.5 10 ^3/uL (0-1.3); Monocytes % (auto) 5.9 % (0.0-12.0); Neutrophils # (auto) 6.9 10 ^3/uL (1.6-8.6); Neutrophils % (auto) 79.8 % (37.0-80.0); Red Cell Distribution Width 13.4 % (11.8-14.3); White Blood Cell 8.6 10^3/uL (4.4-10.8)
[2021-05-26 04:37] LABS: Potassium 3.9 mmol/L (3.5-5.1)
[2021-05-26 04:47] LABS: Calcium 8.1 mg/dL (8.5-10.1); Magnesium 3.2 mg/dL (1.6-2.6); Phosphorus 2.8 mg/dL (2.5-4.90)
[2021-05-26] MEDS: fentaNYL Drip 2500mCg/250mlNS 250 ML IV SCH (05:19)
[2021-05-26] MEDS: DOPamine 1600MCG/ML D5W 250 ML IV SCH ×2 (07:44→18:51)
[2021-05-26] MEDS: FUROSEMIDE 20 MG/2 ML VIAL IV SCH (11:04)
[2021-05-26] MEDS: DexAMETHasone SOD PHOS 10MG/1ML VIAL INJ IV SCH (11:04)
[2021-05-26] MEDS: PANTOPRAZOLE 40 MG/10 ML VIAL INJ IV SCH (11:05)
[2021-05-26] MEDS: ZINC SULFATE 220mg CAP or TAB PO SCH (11:05)
[2021-05-26] MEDS: CHOLECALCIFEROL (VITD3) 2,000 UNIT CAP/TAB PO SCH (11:05)
[2021-05-26] MEDS: ASCORBIC ACID 500 MG TAB PO SCH (11:05)
[2021-05-26] MEDS: ENOXAPARIN SOD 40 MG/0.4 ML SYRINGE SC SCH ×2 (11:07→23:30)
[2021-05-26] MEDS: INSULIN LANTUS (GLARGINE) 1 /0.01ml (100units/ml) SC SCH (11:07)
[2021-05-26] MEDS ORDERED: DEXTROSE (50%) 50ML SYRG IV PRN (11:30)
[2021-05-26] MEDS: FREE WATER GT SCH ×3 (15:14→23:30)
[2021-05-27] VITALS (18 sets, daily range): BP systolic 94–136; BP diastolic 51–77
[2021-05-27] MEDS: NOREPINEPHRINE 8 MG/250ML KIT 250 ML IV SCH ×2 (03:15→20:00)
[2021-05-27] MEDS: InsuLIN REG 1unit/0.01ml Soln (100units/ml) SC SCH ×4 (03:21→18:00)
[2021-05-27] MEDS: fentaNYL Drip 2500mCg/250mlNS 250 ML IV SCH ×2 (03:23→05:15)
[2021-05-27 04:57] LABS: Basophils # (auto) 0 10 ^3/uL (0-0.2); Basophils % (auto) 0.1 % (0.0-2.0); Eosinophils # (auto) 0 10 ^3/uL (0-0.8); Hematocrit 37.9 % (41.0-53.0); Hemoglobin 12.9 g/dL (13.5-17.5); Lymphocytes # (auto) 1.1 10 ^3/uL (0.4-5.4); Lymphocytes % (auto) 16.8 % (10.0-50.0); Mean Corpuscular Hemoglobin 30.9 pg (28.0-32.0); Mean Corpuscular Hgb Conc. 33.9 g/dL (32.0-36.0); Mean Corpuscular Volume 91.1 fL (80.0-100.0); Monocytes # (auto) 0.4 10 ^3/uL (0-1.3); Monocytes % (auto) 6.6 % (0.0-12.0); Neutrophils # (auto) 5.2 10 ^3/uL (1.6-8.6); Neutrophils % (auto) 76.5 % (37.0-80.0); Nucleated Red Blood Cells % 0.1 %; Red Blood Cells 4.16 10^6/uL (4.5-5.90); Red Cell Distribution Width 13.3 % (11.8-14.3); White Blood Cell 6.8 10^3/uL (4.4-10.8)
[2021-05-27 05:12] LABS: BUN/Creatinine Ratio 37.9; Calcium 8.6 mg/dL (8.5-10.1); Potassium 4.6 mmol/L (3.5-5.1)
[2021-05-27] MEDS: FREE WATER GT SCH ×6 (05:15→22:00)
[2021-05-27] MEDS: ACCU-CHEK COMFORT CURVE STRIP VI SCH ×6 (05:16→18:14)
[2021-05-27] MEDS: DOPamine 1600MCG/ML D5W 250 ML IV SCH ×2 (05:18→17:05)
[2021-05-27] MEDS: ACETYLCYSTEINE 10 %(100MG/ML) SOL 4ML NEB SCH ×3 (06:00→19:21)
[2021-05-27] MEDS ORDERED: acetaZOLAMIDE SODIUM 500 MG VL IV ONE (09:00)
[2021-05-27] MEDS: ENOXAPARIN SOD 40 MG/0.4 ML SYRINGE SC SCH ×2 (10:00→22:00)
[2021-05-27] MEDS: INSULIN LANTUS (GLARGINE) 1 /0.01ml (100units/ml) SC SCH (10:00)
[2021-05-27] MEDS: PANTOPRAZOLE 40 MG/10 ML VIAL INJ IV SCH (10:00)
[2021-05-27] MEDS: CHOLECALCIFEROL (VITD3) 2,000 UNIT CAP/TAB PO SCH (10:00)
[2021-05-27] MEDS: ASCORBIC ACID 500 MG TAB PO SCH (10:00)
[2021-05-27] MEDS: ZINC SULFATE 220mg CAP or TAB PO SCH (10:00)
[2021-05-27] MEDS: MIDAZOLAM DRIP 50 mg/50mL 50 ML IV SCH (10:50)
[2021-05-27] MEDS: ALBUTEROL SULF 2.5 MG/0.5ML(0.5%) NEB SOLN NEB SCH ×2 (11:35→19:21)
[2021-05-28] VITALS (14 sets, daily range): BP systolic 103–134; BP diastolic 61–81
[2021-05-28] MEDS: FREE WATER GT SCH ×6 (02:00→22:12)
[2021-05-28 05:07] LABS: Basophils # (auto) 0 10 ^3/uL (0-0.2); Basophils % (auto) 0.2 % (0.0-2.0); Eosinophils # (auto) 0 10 ^3/uL (0-0.8); Eosinophils % (auto) 0.3 % (0.0-7.0); Hematocrit 39.3 % (41.0-53.0); Lymphocytes # (auto) 1.6 10 ^3/uL (0.4-5.4); Lymphocytes % (auto) 12.6 % (10.0-50.0); Mean Corpuscular Hemoglobin 30.5 pg (28.0-32.0); Mean Corpuscular Hgb Conc. 33.2 g/dL (32.0-36.0); Monocytes # (auto) 0.5 10 ^3/uL (0-1.3); Monocytes % (auto) 4.1 % (0.0-12.0); Neutrophils # (auto) 10.3 10 ^3/uL (1.6-8.6); Neutrophils % (auto) 82.8 % (37.0-80.0); Nucleated Red Blood Cells % 0.2 %; Red Blood Cells 4.27 10^6/uL (4.5-5.90); Red Cell Distribution Width 13.4 % (11.8-14.3); White Blood Cell 12.5 10^3/uL (4.4-10.8)
[2021-05-28 05:32] LABS: Potassium 3.7 mmol/L (3.5-5.1)
[2021-05-28 05:39] LABS: BUN/Creatinine Ratio 28.8; Calcium 8.1 mg/dL (8.5-10.1)
[2021-05-28] MEDS: ALBUTEROL SULF 2.5 MG/0.5ML(0.5%) NEB SOLN NEB SCH ×4 (06:00→19:18)
[2021-05-28] MEDS: ACCU-CHEK COMFORT CURVE STRIP VI SCH ×8 (06:07→18:00)
[2021-05-28] MEDS: InsuLIN REG 1unit/0.01ml Soln (100units/ml) SC SCH ×4 (06:09→18:00)
[2021-05-28] MEDS: ACETYLCYSTEINE 10 %(100MG/ML) SOL 4ML NEB SCH ×4 (09:00→19:19)
[2021-05-28] MEDS: CHOLECALCIFEROL (VITD3) 2,000 UNIT CAP/TAB PO SCH (09:46)
[2021-05-28] MEDS: ASCORBIC ACID 500 MG TAB PO SCH (09:46)
[2021-05-28] MEDS: PANTOPRAZOLE 40 MG/10 ML VIAL INJ IV SCH (09:46)
[2021-05-28] MEDS: ZINC SULFATE 220mg CAP or TAB PO SCH (09:46)
[2021-05-28] MEDS: ENOXAPARIN SOD 40 MG/0.4 ML SYRINGE SC SCH ×2 (09:52→22:11)
[2021-05-28] MEDS: INSULIN LANTUS (GLARGINE) 1 /0.01ml (100units/ml) SC SCH (09:52)
[2021-05-28] MEDS: DOPamine 1600MCG/ML D5W 250 ML IV SCH (15:19)
[2021-05-28 17:08] LABS: INR 1.23 (0.9-1.15)
[2021-05-28] MEDS ORDERED: fentaNYL Drip 2500mCg/250mlNS 250 ML IV SCH (19:45)
[2021-05-29] VITALS (55 sets, daily range): BP systolic 91–149; BP diastolic 48–73
[2021-05-29] MEDS: ACCU-CHEK COMFORT CURVE STRIP VI SCH ×8 (00:02→18:34)
[2021-05-29] MEDS: InsuLIN REG 1unit/0.01ml Soln (100units/ml) SC SCH ×4 (00:07→18:36)
[2021-05-29] MEDS: MIDAZOLAM DRIP 50 mg/50mL 50 ML IV SCH ×3 (01:11→16:47)
[2021-05-29] MEDS: FREE WATER GT SCH ×6 (02:00→21:26)
[2021-05-29] MEDS: fentaNYL Drip 2500mCg/250mlNS 250 ML IV SCH ×2 (02:10→10:53)
[2021-05-29] MEDS: DOPamine 1600MCG/ML D5W 250 ML IV SCH (02:26)
[2021-05-29] MEDS: NOREPINEPHRINE 8 MG/250ML KIT 250 ML IV SCH (03:15)
[2021-05-29 06:22] LABS: Basophils # (auto) 0 10 ^3/uL (0-0.2); Basophils % (auto) 0.3 % (0.0-2.0); Eosinophils # (auto) 0.2 10 ^3/uL (0-0.8); Eosinophils % (auto) 1.9 % (0.0-7.0); Hematocrit 35.3 % (41.0-53.0); Lymphocytes # (auto) 1.1 10 ^3/uL (0.4-5.4); Lymphocytes % (auto) 11.2 % (10.0-50.0); Mean Corpuscular Hemoglobin 30.9 pg (28.0-32.0); Mean Corpuscular Hgb Conc. 33.9 g/dL (32.0-36.0); Mean Corpuscular Volume 91.3 fL (80.0-100.0); Monocytes # (auto) 0.4 10 ^3/uL (0-1.3); Monocytes % (auto) 4.4 % (0.0-12.0); Neutrophils # (auto) 7.8 10 ^3/uL (1.6-8.6); Neutrophils % (auto) 82.2 % (37.0-80.0); Nucleated Red Blood Cells % 0.1 %; Red Blood Cells 3.87 10^6/uL (4.5-5.90); Red Cell Distribution Width 13.3 % (11.8-14.3); White Blood Cell 9.4 10^3/uL (4.4-10.8)
[2021-05-29] MEDS: ALBUTEROL SULF 2.5 MG/0.5ML(0.5%) NEB SOLN NEB SCH ×4 (06:25→18:09)
[2021-05-29] MEDS: ACETYLCYSTEINE 10 %(100MG/ML) SOL 4ML NEB SCH ×4 (06:25→18:09)
[2021-05-29 06:48] LABS: Calcium 7.9 mg/dL (8.5-10.1); Potassium 3.5 mmol/L (3.5-5.1)
[2021-05-29] MEDS: PANTOPRAZOLE 40 MG/10 ML VIAL INJ IV SCH (09:17)
[2021-05-29] MEDS: CHOLECALCIFEROL (VITD3) 2,000 UNIT CAP/TAB PO SCH (09:18)
[2021-05-29] MEDS: ASCORBIC ACID 500 MG TAB PO SCH (09:18)
[2021-05-29] MEDS: ZINC SULFATE 220mg CAP or TAB PO SCH (09:18)
[2021-05-29] MEDS: ENOXAPARIN SOD 40 MG/0.4 ML SYRINGE SC SCH ×2 (09:19→21:33)
[2021-05-29] MEDS: INSULIN LANTUS (GLARGINE) 1 /0.01ml (100units/ml) SC SCH (10:21)
[2021-05-29] MEDS ORDERED: FLUCONAZOLE 200MG/100ML 100 ML IV ONE (17:00)
[2021-05-29] MEDS: FLUCONAZOLE 200MG/100ML 100 ML IV SCH (18:39)
[2021-05-30] VITALS (30 sets, daily range): BP systolic 103–137; BP diastolic 56–76
[2021-05-30] MEDS: FREE WATER GT SCH ×6 (02:00→22:59)
[2021-05-30] MEDS: ALBUTEROL SULF 2.5 MG/0.5ML(0.5%) NEB SOLN NEB SCH ×2 (02:05→18:28)
[2021-05-30] MEDS: ACETYLCYSTEINE 10 %(100MG/ML) SOL 4ML NEB SCH ×2 (02:05→18:28)
[2021-05-30 06:06] LABS: Basophils # (auto) 0.1 10 ^3/uL (0-0.2); Basophils % (auto) 0.9 % (0.0-2.0); Eosinophils # (auto) 0.4 10 ^3/uL (0-0.8); Eosinophils % (auto) 4.5 % (0.0-7.0); Hematocrit 33.8 % (41.0-53.0); Hemoglobin 11.4 g/dL (13.5-17.5); Lymphocytes # (auto) 1.2 10 ^3/uL (0.4-5.4); Lymphocytes % (auto) 14.9 % (10.0-50.0); Mean Corpuscular Hemoglobin 30.8 pg (28.0-32.0); Mean Corpuscular Hgb Conc. 33.7 g/dL (32.0-36.0); Mean Corpuscular Volume 91.4 fL (80.0-100.0); Monocytes # (auto) 0.4 10 ^3/uL (0-1.3); Monocytes % (auto) 4.8 % (0.0-12.0); Neutrophils # (auto) 6.3 10 ^3/uL (1.6-8.6); Neutrophils % (auto) 74.9 % (37.0-80.0); Nucleated Red Blood Cells % 0.1 %; Red Cell Distribution Width 13.9 % (11.8-14.3); White Blood Cell 8.4 10^3/uL (4.4-10.8)
[2021-05-30 06:28] LABS: Potassium 3.5 mmol/L (3.5-5.1)
[2021-05-30] MEDS: ACCU-CHEK COMFORT CURVE STRIP VI SCH ×6 (06:29→18:00)
[2021-05-30] MEDS: InsuLIN REG 1unit/0.01ml Soln (100units/ml) SC SCH ×4 (06:30→18:00)
[2021-05-30 06:41] LABS: BUN/Creatinine Ratio 20.5; Calcium 7.3 mg/dL (8.5-10.1)
[2021-05-30] MEDS ORDERED: POTASSIUM EFFERVESENT TAB 25 MEQ PO ONE (09:00)
[2021-05-30] MEDS: CHOLECALCIFEROL (VITD3) 2,000 UNIT CAP/TAB PO SCH (10:00)
[2021-05-30] MEDS: ENOXAPARIN SOD 40 MG/0.4 ML SYRINGE SC SCH ×2 (10:00→22:59)
[2021-05-30] MEDS: ZINC SULFATE 220mg CAP or TAB PO SCH (10:00)
[2021-05-30] MEDS: PANTOPRAZOLE 40 MG/10 ML VIAL INJ IV SCH (10:00)
[2021-05-30] MEDS: INSULIN LANTUS (GLARGINE) 1 /0.01ml (100units/ml) SC SCH (10:00)
[2021-05-30] MEDS: ASCORBIC ACID 500 MG TAB PO SCH (10:00)
[2021-05-30] MEDS: MIDAZOLAM DRIP 50 mg/50mL 50 ML IV SCH ×3 (10:30→19:41)
[2021-05-30] MEDS: NOREPINEPHRINE 8 MG/250ML KIT 250 ML IV SCH (10:30)
[2021-05-30] MEDS: fentaNYL Drip 2500mCg/250mlNS 250 ML IV SCH (16:47)
[2021-05-31] VITALS (29 sets, daily range): BP systolic 99–165; BP diastolic 59–95
[2021-05-31] MEDS: ACETYLCYSTEINE 10 %(100MG/ML) SOL 4ML NEB SCH ×3 (00:43→18:50)
[2021-05-31] MEDS: ACCU-CHEK COMFORT CURVE STRIP VI SCH ×4 (00:52→18:00)
[2021-05-31] MEDS: InsuLIN REG 1unit/0.01ml Soln (100units/ml) SC SCH ×4 (00:52→18:00)
[2021-05-31] MEDS: ALBUTEROL SULF 2.5 MG/0.5ML(0.5%) NEB SOLN NEB SCH ×4 (00:54→18:50)
[2021-05-31] MEDS: FREE WATER GT SCH ×6 (02:00→22:00)
[2021-05-31 04:52] LABS: Basophils # (auto) 0 10 ^3/uL (0-0.2); Basophils % (auto) 0.2 % (0.0-2.0); Eosinophils # (auto) 0.4 10 ^3/uL (0-0.8); Eosinophils % (auto) 5.6 % (0.0-7.0); Hematocrit 33.8 % (41.0-53.0); Hemoglobin 11.4 g/dL (13.5-17.5); Lymphocytes # (auto) 1.1 10 ^3/uL (0.4-5.4); Lymphocytes % (auto) 17.8 % (10.0-50.0); Mean Corpuscular Hemoglobin 30.8 pg (28.0-32.0); Mean Corpuscular Hgb Conc. 33.8 g/dL (32.0-36.0); Monocytes # (auto) 0.3 10 ^3/uL (0-1.3); Monocytes % (auto) 4.6 % (0.0-12.0); Neutrophils # (auto) 4.5 10 ^3/uL (1.6-8.6); Neutrophils % (auto) 71.8 % (37.0-80.0); Nucleated Red Blood Cells % 0.1 %; Red Blood Cells 3.71 10^6/uL (4.5-5.90); Red Cell Distribution Width 13.9 % (11.8-14.3); White Blood Cell 6.3 10^3/uL (4.4-10.8)
[2021-05-31 05:08] LABS: Calcium 7.4 mg/dL (8.5-10.1); Potassium 3.3 mmol/L (3.5-5.1)
[2021-05-31 05:10] LABS: BUN/Creatinine Ratio 12.8
[2021-05-31] MEDS: ZINC SULFATE 220mg CAP or TAB PO SCH (10:00)
[2021-05-31] MEDS: PANTOPRAZOLE 40 MG/10 ML VIAL INJ IV SCH (10:00)
[2021-05-31] MEDS: FLUCONAZOLE 200MG/100ML 100 ML IV SCH (10:00)
[2021-05-31] MEDS: MIDAZOLAM DRIP 50 mg/50mL 50 ML IV SCH (10:00)
[2021-05-31] MEDS: CHOLECALCIFEROL (VITD3) 2,000 UNIT CAP/TAB PO SCH (10:00)
[2021-05-31] MEDS: INSULIN LANTUS (GLARGINE) 1 /0.01ml (100units/ml) SC SCH (10:00)
[2021-05-31] MEDS: ASCORBIC ACID 500 MG TAB PO SCH (10:00)
[2021-05-31] MEDS: ENOXAPARIN SOD 40 MG/0.4 ML SYRINGE SC SCH ×2 (10:00→22:00)
[2021-05-31] MEDS ORDERED: POTASSIUM CHLORIDE 40 MEQ, LIDOCAINE 1% (LOCAL ANESTH.) 4 ML in SODIUM CHL 0.9% 250 ML IV ONE (12:00)
[2021-05-31] MEDS: ERGOCALCIFEROL 50,000 UNIT(1.25MG) CAP PO SCH (12:05)
[2021-05-31] MEDS: Glucerna 1.2 Cal 1Liter BOTTLE GT SCH (12:06)
[2021-05-31] MEDS: POTASSIUM CHL 20MEQ/50ML 50 ML IV SCH ×2 (12:15→14:15)
[2021-05-31 18:07] LABS: INR 1.16 (0.9-1.15)
[2021-06-01] VITALS (19 sets, daily range): BP systolic 98–148; BP diastolic 53–88
[2021-06-01] MEDS: ALBUTEROL SULF 2.5 MG/0.5ML(0.5%) NEB SOLN NEB SCH ×4 (00:43→18:32)
[2021-06-01] MEDS: FREE WATER GT SCH ×6 (02:01→22:00)
[2021-06-01] MEDS: NOREPINEPHRINE 8 MG/250ML KIT 250 ML IV SCH ×2 (03:15→13:15)
[2021-06-01 04:48] LABS: Basophils # (auto) 0 10 ^3/uL (0-0.2); Basophils % (auto) 0.4 % (0.0-2.0); Eosinophils # (auto) 0.3 10 ^3/uL (0-0.8); Eosinophils % (auto) 5.9 % (0.0-7.0); Hematocrit 35.7 % (41.0-53.0); Hemoglobin 11.7 g/dL (13.5-17.5); Lymphocytes % (auto) 18.2 % (10.0-50.0); Mean Corpuscular Hemoglobin 30.1 pg (28.0-32.0); Mean Corpuscular Hgb Conc. 32.7 g/dL (32.0-36.0); Mean Corpuscular Volume 92.2 fL (80.0-100.0); Monocytes # (auto) 0.4 10 ^3/uL (0-1.3); Monocytes % (auto) 7.5 % (0.0-12.0); Neutrophils # (auto) 3.8 10 ^3/uL (1.6-8.6); Red Blood Cells 3.87 10^6/uL (4.5-5.90); Red Cell Distribution Width 13.8 % (11.8-14.3); White Blood Cell 5.5 10^3/uL (4.4-10.8)
[2021-06-01 05:09] LABS: Calcium 8.4 mg/dL (8.5-10.1); Potassium 3.9 mmol/L (3.5-5.1)
[2021-06-01 05:11] LABS: BUN/Creatinine Ratio 10.2
[2021-06-01] MEDS: ACETYLCYSTEINE 10 %(100MG/ML) SOL 4ML NEB SCH ×2 (05:29→18:32)
[2021-06-01] MEDS: ACCU-CHEK COMFORT CURVE STRIP VI SCH ×4 (06:00→18:00)
[2021-06-01] MEDS: InsuLIN REG 1unit/0.01ml Soln (100units/ml) SC SCH ×4 (06:00→18:00)
[2021-06-01] MEDS: FLUCONAZOLE 200MG/100ML 100 ML IV SCH (09:33)
[2021-06-01] MEDS: PANTOPRAZOLE 40 MG/10 ML VIAL INJ IV SCH ×2 (09:33→22:00)
[2021-06-01] MEDS: CHOLECALCIFEROL (VITD3) 2,000 UNIT CAP/TAB PO SCH (09:34)
[2021-06-01] MEDS: ASCORBIC ACID 500 MG TAB PO SCH (09:34)
[2021-06-01] MEDS: INSULIN LANTUS (GLARGINE) 1 /0.01ml (100units/ml) SC SCH (09:45)
[2021-06-01] MEDS: ENOXAPARIN SOD 40 MG/0.4 ML SYRINGE SC SCH ×2 (10:00→22:00)
[2021-06-01] MEDS: ZINC SULFATE 220mg CAP or TAB PO SCH (10:00)
[2021-06-01] MEDS: MIDAZOLAM DRIP 50 mg/50mL 50 ML IV SCH ×4 (10:28→23:04)
[2021-06-01 12:26] LABS: INR 1.14 (0.9-1.15); Partial Thromboplastin Time 31.2 sec (23.6-33.0)
[2021-06-01] MEDS: fentaNYL Drip 2500mCg/250mlNS 250 ML IV SCH (12:57)
[2021-06-01] MEDS ORDERED: MIDAZOLAM HCL 2MG/2ML 2ml VIAL (1mg/ml) ONE (13:56)
[2021-06-01] MEDS ORDERED: fentaNYL CITRATE 5 ML ONE (13:56)
[2021-06-02] VITALS (41 sets, daily range): BP systolic 92–158; BP diastolic 50–83
[2021-06-02] MEDS: InsuLIN REG 1unit/0.01ml Soln (100units/ml) SC SCH ×4 (00:07→18:00)
[2021-06-02] MEDS: fentaNYL Drip 2500mCg/250mlNS 250 ML IV SCH (00:30)
[2021-06-02] MEDS: MIDAZOLAM DRIP 50 mg/50mL 50 ML IV SCH (00:35)
[2021-06-02] MEDS: ACETYLCYSTEINE 10 %(100MG/ML) SOL 4ML NEB SCH ×5 (02:02→22:35)
[2021-06-02] MEDS: ALBUTEROL SULF 2.5 MG/0.5ML(0.5%) NEB SOLN NEB SCH ×5 (02:02→22:36)
[2021-06-02] MEDS: NOREPINEPHRINE 8 MG/250ML KIT 250 ML IV SCH (03:15)
[2021-06-02 05:10] LABS: Basophils # (auto) 0 10 ^3/uL (0-0.2); Basophils % (auto) 0.8 % (0.0-2.0); Eosinophils # (auto) 0.3 10 ^3/uL (0-0.8); Eosinophils % (auto) 5.4 % (0.0-7.0); Hemoglobin 11.9 g/dL (13.5-17.5); Lymphocytes # (auto) 0.8 10 ^3/uL (0.4-5.4); Lymphocytes % (auto) 15.6 % (10.0-50.0); Mean Corpuscular Hemoglobin 31.2 pg (28.0-32.0); Mean Corpuscular Hgb Conc. 34.1 g/dL (32.0-36.0); Mean Corpuscular Volume 91.6 fL (80.0-100.0); Monocytes # (auto) 0.5 10 ^3/uL (0-1.3); Monocytes % (auto) 10.3 % (0.0-12.0); Neutrophils # (auto) 3.3 10 ^3/uL (1.6-8.6); Neutrophils % (auto) 67.9 % (37.0-80.0); Nucleated Red Blood Cells % 0.1 %; Red Blood Cells 3.82 10^6/uL (4.5-5.90); Red Cell Distribution Width 13.9 % (11.8-14.3); White Blood Cell 4.9 10^3/uL (4.4-10.8)
[2021-06-02] MEDS: DOPamine 1600MCG/ML D5W 250 ML IV SCH ×3 (05:28→17:36)
[2021-06-02] MEDS: ACCU-CHEK COMFORT CURVE STRIP VI SCH ×4 (06:11→18:27)
[2021-06-02] MEDS: FREE WATER GT SCH ×6 (06:12→22:00)
[2021-06-02] MEDS: PANTOPRAZOLE 40 MG/10 ML VIAL INJ IV SCH ×2 (09:43→21:08)
[2021-06-02] MEDS: ENOXAPARIN SOD 40 MG/0.4 ML SYRINGE SC SCH ×2 (09:43→21:08)
[2021-06-02] MEDS: CHOLECALCIFEROL (VITD3) 2,000 UNIT CAP/TAB PO SCH (09:43)
[2021-06-02] MEDS: FLUCONAZOLE 200MG/100ML 100 ML IV SCH (09:43)
[2021-06-02] MEDS: ZINC SULFATE 220mg CAP or TAB PO SCH (09:43)
[2021-06-02] MEDS: ASCORBIC ACID 500 MG TAB PO SCH (09:44)
[2021-06-02] MEDS: INSULIN LANTUS (GLARGINE) 1 /0.01ml (100units/ml) SC SCH (10:00)
[2021-06-03] VITALS (24 sets, daily range): BP systolic 94–139; BP diastolic 53–93
[2021-06-03] MEDS: fentaNYL Drip 2500mCg/250mlNS 250 ML IV SCH ×2 (00:15→19:54)
[2021-06-03] MEDS ORDERED: NOREPINEPHRINE 8 MG/250ML KIT 0 ML IV ONE (01:05)
[2021-06-03] MEDS: InsuLIN REG 1unit/0.01ml Soln (100units/ml) SC SCH ×4 (01:23→18:00)
[2021-06-03] MEDS: FREE WATER GT SCH ×6 (02:00→22:00)
[2021-06-03] MEDS: NOREPINEPHRINE 8 MG/250ML KIT 250 ML IV SCH (03:15)
[2021-06-03] MEDS: DOPamine 1600MCG/ML D5W 250 ML IV SCH (04:43)
[2021-06-03 05:47] LABS: Basophils # (auto) 0 10 ^3/uL (0-0.2); Basophils % (auto) 0.6 % (0.0-2.0); Eosinophils # (auto) 0.3 10 ^3/uL (0-0.8); Eosinophils % (auto) 5.7 % (0.0-7.0); Hematocrit 34.4 % (41.0-53.0); Hemoglobin 11.6 g/dL (13.5-17.5); Lymphocytes % (auto) 20.5 % (10.0-50.0); Mean Corpuscular Hemoglobin 30.5 pg (28.0-32.0); Mean Corpuscular Hgb Conc. 33.6 g/dL (32.0-36.0); Mean Corpuscular Volume 90.7 fL (80.0-100.0); Monocytes # (auto) 0.6 10 ^3/uL (0-1.3); Monocytes % (auto) 12.7 % (0.0-12.0); Neutrophils # (auto) 2.8 10 ^3/uL (1.6-8.6); Neutrophils % (auto) 60.5 % (37.0-80.0); Nucleated Red Blood Cells % 0.1 %; Red Blood Cells 3.79 10^6/uL (4.5-5.90); Red Cell Distribution Width 14.2 % (11.8-14.3); White Blood Cell 4.7 10^3/uL (4.4-10.8)
[2021-06-03] MEDS: ACCU-CHEK COMFORT CURVE STRIP VI SCH ×4 (06:00→18:00)
[2021-06-03] MEDS: ACETYLCYSTEINE 10 %(100MG/ML) SOL 4ML NEB SCH ×3 (06:36→18:17)
[2021-06-03] MEDS: ALBUTEROL SULF 2.5 MG/0.5ML(0.5%) NEB SOLN NEB SCH ×3 (06:36→18:16)
[2021-06-03 07:01] LABS: Albumin 1.5 g/dL (3.4-5.0); BUN/Creatinine Ratio 11.9; Calcium 7.6 mg/dL (8.5-10.1); Potassium 3.6 mmol/L (3.5-5.1)
[2021-06-03 07:03] LABS: Bilirubin, Total 0.4 mg/dL (0.2-1.0)
[2021-06-03] MEDS: ASCORBIC ACID 500 MG TAB PO SCH (09:50)
[2021-06-03] MEDS: FLUCONAZOLE 200MG/100ML 100 ML IV SCH (09:50)
[2021-06-03] MEDS: CHOLECALCIFEROL (VITD3) 2,000 UNIT CAP/TAB PO SCH (09:50)
[2021-06-03] MEDS: ZINC SULFATE 220mg CAP or TAB PO SCH (09:50)
[2021-06-03] MEDS: PANTOPRAZOLE 40 MG/10 ML VIAL INJ IV SCH ×2 (09:50→22:00)
[2021-06-03] MEDS: ENOXAPARIN SOD 40 MG/0.4 ML SYRINGE SC SCH ×2 (09:51→22:00)
[2021-06-03] MEDS: INSULIN LANTUS (GLARGINE) 1 /0.01ml (100units/ml) SC SCH (09:51)
[2021-06-03] MEDS: ACETAMINOPHEN 500 MG TAB PO PRN ×2 (09:53→19:28)
[2021-06-03] MEDS: METOCLOPRAMIDE HCL 5MG/ml INJ 2ml VIAL IV SCH (18:00)
[2021-06-04] VITALS (31 sets, daily range): BP systolic 119–167; BP diastolic 71–93
[2021-06-04] MEDS: MIDAZOLAM DRIP 50 mg/50mL 50 ML IV SCH (00:10)
[2021-06-04] MEDS: METOCLOPRAMIDE HCL 5MG/ml INJ 2ml VIAL IV SCH ×4 (00:11→17:33)
[2021-06-04] MEDS: ACCU-CHEK COMFORT CURVE STRIP VI SCH ×4 (00:11→18:00)
[2021-06-04] MEDS: DOPamine 1600MCG/ML D5W 250 ML IV SCH ×3 (00:40→20:06)
[2021-06-04] MEDS: FREE WATER GT SCH ×6 (02:00→22:24)
[2021-06-04] MEDS: ACETYLCYSTEINE 10 %(100MG/ML) SOL 4ML NEB SCH ×5 (02:19→23:48)
[2021-06-04] MEDS: NOREPINEPHRINE 8 MG/250ML KIT 250 ML IV SCH (03:15)
[2021-06-04] MEDS: InsuLIN REG 1unit/0.01ml Soln (100units/ml) SC SCH ×4 (06:00→18:00)
[2021-06-04] MEDS: ALBUTEROL SULF 2.5 MG/0.5ML(0.5%) NEB SOLN NEB SCH ×4 (06:10→23:48)
[2021-06-04] MEDS: ASCORBIC ACID 500 MG TAB PO SCH (10:00)
[2021-06-04] MEDS: ZINC SULFATE 220mg CAP or TAB PO SCH (10:00)
[2021-06-04] MEDS: INSULIN LANTUS (GLARGINE) 1 /0.01ml (100units/ml) SC SCH (10:00)
[2021-06-04] MEDS: ENOXAPARIN SOD 40 MG/0.4 ML SYRINGE SC SCH ×2 (10:00→22:24)
[2021-06-04] MEDS: CHOLECALCIFEROL (VITD3) 2,000 UNIT CAP/TAB PO SCH (10:00)
[2021-06-04] MEDS: PANTOPRAZOLE 40 MG/10 ML VIAL INJ IV SCH ×2 (10:00→22:24)
[2021-06-04] MEDS: FLUCONAZOLE 200MG/100ML 100 ML IV SCH (10:00)
[2021-06-05] MEDS: fentaNYL Drip 2500mCg/250mlNS 250 ML IV SCH (01:00)
[2021-06-05] MEDS: MIDAZOLAM DRIP 50 mg/50mL 50 ML IV SCH (01:00)
[2021-06-05] MEDS: DOPamine 1600MCG/ML D5W 250 ML IV SCH ×2 (01:11→23:25)
[2021-06-05] MEDS: InsuLIN REG 1unit/0.01ml Soln (100units/ml) SC SCH ×4 (01:15→18:00)
[2021-06-05] MEDS: FREE WATER GT SCH ×4 (02:00→22:00)
[2021-06-05] MEDS: NOREPINEPHRINE 8 MG/250ML KIT 250 ML IV SCH (05:20)
[2021-06-05] MEDS: METOCLOPRAMIDE HCL 5MG/ml INJ 2ml VIAL IV SCH ×4 (05:24→18:00)
[2021-06-05 06:00] VITALS: BP 126/72
[2021-06-05] MEDS: ACCU-CHEK COMFORT CURVE STRIP VI SCH ×4 (06:00→18:00)
[2021-06-05] MEDS: ACETYLCYSTEINE 10 %(100MG/ML) SOL 4ML NEB SCH ×3 (06:15→18:43)
[2021-06-05] MEDS: ALBUTEROL SULF 2.5 MG/0.5ML(0.5%) NEB SOLN NEB SCH ×3 (06:15→18:43)
[2021-06-05 10:00] VITALS: BP 129/74
[2021-06-05] MEDS: FLUCONAZOLE 200MG/100ML 100 ML IV SCH ×2 (10:00→18:30)
[2021-06-05] MEDS: ZINC SULFATE 220mg CAP or TAB PO SCH (10:00)
[2021-06-05] MEDS: PANTOPRAZOLE 40 MG/10 ML VIAL INJ IV SCH ×2 (10:00→22:00)
[2021-06-05] MEDS: ENOXAPARIN SOD 40 MG/0.4 ML SYRINGE SC SCH ×2 (10:00→22:00)
[2021-06-05] MEDS: CHOLECALCIFEROL (VITD3) 2,000 UNIT CAP/TAB PO SCH (10:00)
[2021-06-05] MEDS: ASCORBIC ACID 500 MG TAB PO SCH (10:00)
[2021-06-05] MEDS: INSULIN LANTUS (GLARGINE) 1 /0.01ml (100units/ml) SC SCH (10:00)
[2021-06-05 10:30] VITALS: BP 159/77
[2021-06-05 20:00] VITALS: BP 158/85
[2021-06-05 22:15] VITALS: BP 146/80
[2021-06-06] VITALS (21 sets, daily range): BP systolic 106–150; BP diastolic 44–87
[2021-06-06] MEDS: FREE WATER GT SCH ×6 (02:00→22:15)
[2021-06-06] MEDS: ALBUTEROL SULF 2.5 MG/0.5ML(0.5%) NEB SOLN NEB SCH ×4 (02:19→18:00)
[2021-06-06] MEDS: ACETYLCYSTEINE 10 %(100MG/ML) SOL 4ML NEB SCH ×3 (02:19→15:00)
[2021-06-06 05:07] LABS: Basophils # (auto) 0 10 ^3/uL (0-0.2); Eosinophils # (auto) 0.2 10 ^3/uL (0-0.8); Hematocrit 32.6 % (41.0-53.0); Hemoglobin 10.9 g/dL (13.5-17.5); Lymphocytes % (auto) 22.2 % (10.0-50.0); Mean Corpuscular Hemoglobin 30.3 pg (28.0-32.0); Mean Corpuscular Hgb Conc. 33.4 g/dL (32.0-36.0); Mean Corpuscular Volume 90.8 fL (80.0-100.0); Monocytes # (auto) 0.5 10 ^3/uL (0-1.3); Monocytes % (auto) 10.2 % (0.0-12.0); Neutrophils # (auto) 2.9 10 ^3/uL (1.6-8.6); Neutrophils % (auto) 61.6 % (37.0-80.0); Nucleated Red Blood Cells % 0.1 %; Red Blood Cells 3.59 10^6/uL (4.5-5.90); Red Cell Distribution Width 13.8 % (11.8-14.3); White Blood Cell 4.7 10^3/uL (4.4-10.8)
[2021-06-06 05:25] LABS: Albumin 1.6 g/dL (3.4-5.0); BUN/Creatinine Ratio 13.9; Calcium 8.1 mg/dL (8.5-10.1); Magnesium 2.4 mg/dL (1.6-2.6); Potassium 3.3 mmol/L (3.5-5.1)
[2021-06-06 05:28] LABS: Bilirubin, Total 0.3 mg/dL (0.2-1.0); Total Protein 5.9 g/dL (6.4-8.2)
[2021-06-06] MEDS: InsuLIN REG 1unit/0.01ml Soln (100units/ml) SC SCH ×4 (06:00→17:36)
[2021-06-06] MEDS: ACCU-CHEK COMFORT CURVE STRIP VI SCH ×4 (06:04→17:36)
[2021-06-06] MEDS: INSULIN LANTUS (GLARGINE) 1 /0.01ml (100units/ml) SC SCH (09:59)
[2021-06-06] MEDS: CHOLECALCIFEROL (VITD3) 2,000 UNIT CAP/TAB PO SCH (10:00)
[2021-06-06] MEDS: ZINC SULFATE 220mg CAP or TAB PO SCH (10:00)
[2021-06-06] MEDS: ASCORBIC ACID 500 MG TAB PO SCH (10:00)
[2021-06-06] MEDS: PANTOPRAZOLE 40 MG/10 ML VIAL INJ IV SCH ×2 (10:00→22:15)
[2021-06-06] MEDS: ENOXAPARIN SOD 40 MG/0.4 ML SYRINGE SC SCH ×2 (10:00→22:15)
[2021-06-06] MEDS: DOPamine 1600MCG/ML D5W 250 ML IV SCH ×2 (10:32→21:39)
[2021-06-06] MEDS: METOCLOPRAMIDE HCL 5MG/ml INJ 2ml VIAL IV SCH ×3 (14:44→18:00)
[2021-06-06] MEDS: POTASSIUM CHL 10MEQ/50ML 50 ML IV SCH ×4 (14:44→17:38)
[2021-06-07] VITALS (15 sets, daily range): BP systolic 107–154; BP diastolic 58–86
[2021-06-07] MEDS: METOCLOPRAMIDE HCL 5MG/ml INJ 2ml VIAL IV SCH ×4 (00:33→17:13)
[2021-06-07 04:20] LABS: Basophils # (auto) 0 10 ^3/uL (0-0.2); Basophils % (auto) 0.7 % (0.0-2.0); Eosinophils # (auto) 0.2 10 ^3/uL (0-0.8); Eosinophils % (auto) 5.7 % (0.0-7.0); Hematocrit 31.6 % (41.0-53.0); Hemoglobin 10.5 g/dL (13.5-17.5); Lymphocytes # (auto) 0.9 10 ^3/uL (0.4-5.4); Lymphocytes % (auto) 21.9 % (10.0-50.0); Mean Corpuscular Hemoglobin 30.4 pg (28.0-32.0); Mean Corpuscular Hgb Conc. 33.3 g/dL (32.0-36.0); Mean Corpuscular Volume 91.3 fL (80.0-100.0); Monocytes # (auto) 0.4 10 ^3/uL (0-1.3); Monocytes % (auto) 10.5 % (0.0-12.0); Neutrophils # (auto) 2.4 10 ^3/uL (1.6-8.6); Neutrophils % (auto) 61.2 % (37.0-80.0); Nucleated Red Blood Cells % 0.1 %; Red Blood Cells 3.46 10^6/uL (4.5-5.90); Red Cell Distribution Width 14.4 % (11.8-14.3)
[2021-06-07 04:55] LABS: Calcium 8.1 mg/dL (8.5-10.1); Magnesium 2.1 mg/dL (1.6-2.6)
[2021-06-07 05:05] LABS: BUN/Creatinine Ratio 21.6
[2021-06-07] MEDS: FREE WATER GT SCH ×5 (06:00→17:13)
[2021-06-07] MEDS: ACETYLCYSTEINE 10 %(100MG/ML) SOL 4ML NEB SCH ×3 (06:10→17:53)
[2021-06-07] MEDS: ALBUTEROL SULF 2.5 MG/0.5ML(0.5%) NEB SOLN NEB SCH ×3 (06:10→17:53)
[2021-06-07] MEDS: ACCU-CHEK COMFORT CURVE STRIP VI SCH ×4 (06:37→17:13)
[2021-06-07] MEDS: InsuLIN REG 1unit/0.01ml Soln (100units/ml) SC SCH ×4 (06:39→18:00)
[2021-06-07] MEDS: DOPamine 1600MCG/ML D5W 250 ML IV SCH (08:46)
[2021-06-07] MEDS: PANTOPRAZOLE 40 MG/10 ML VIAL INJ IV SCH (09:46)
[2021-06-07] MEDS: FLUCONAZOLE 200MG/100ML 100 ML IV SCH (09:46)
[2021-06-07] MEDS: ZINC SULFATE 220mg CAP or TAB PO SCH (09:46)
[2021-06-07] MEDS: CHOLECALCIFEROL (VITD3) 2,000 UNIT CAP/TAB PO SCH (09:47)
[2021-06-07] MEDS: ENOXAPARIN SOD 40 MG/0.4 ML SYRINGE SC SCH (09:47)
[2021-06-07] MEDS: ASCORBIC ACID 500 MG TAB PO SCH (09:47)
[2021-06-07] MEDS: INSULIN LANTUS (GLARGINE) 1 /0.01ml (100units/ml) SC SCH (09:47)
== END 2021-06-07 20:16 | disposition short-term general hospital (02) | DRG 4 ==
LOC: ER 19:34 → TELE 05-08 06:27 → ICU WEST 05-09 09:40
PROVIDERS: ADMIT Nurse Practitioner; ATTEND Internal Medicine
PROC: 5A1955Z Respiratory Ventilation, Greater than 96 Consecutive Hours (ICD-10-PCS; principal; 2021-05-08)
PROC: 0BH17EZ Insertion of Endotracheal Airway into Trachea, Via Natural or Artificial Opening (ICD-10-PCS; 2021-05-08)
PROC: 05HY33Z Insertion of Infusion Device into Upper Vein, Percutaneous Approach (ICD-10-PCS; 2021-05-08)
PROC: XW033E5 Introduction of Remdesivir Anti-infective into Peripheral Vein, Percutaneous Approach, New Technology Group 5 (ICD-10-PCS; 2021-05-08)
PROC: 0B110F4 Bypass Trachea to Cutaneous with Tracheostomy Device, Open Approach (ICD-10-PCS; 2021-06-01)
PROC: 0DJ08ZZ Inspection of Upper Intestinal Tract, Via Natural or Artificial Opening Endoscopic (ICD-10-PCS; 2021-06-01)
DX: U07.1 COVID-19 (principal); J96.01 Acute respiratory failure with hypoxia; E43 Unspecified severe protein-calorie malnutrition; J12.82 Pneumonia due to coronavirus disease 2019; Z99.11 Dependence on respirator [ventilator] status; Z68.41 Body mass index [BMI] 40.0-44.9, adult; E66.01 Morbid (severe) obesity due to excess calories; E11.9 Type 2 diabetes mellitus without complications; E55.9 Vitamin D deficiency, unspecified; R53.81 Other malaise; K29.70 Gastritis, unspecified, without bleeding; Z90.49 Acquired absence of other specified parts of digestive tract
CPT/HCPCS: 31500; 36415; 36556; 36600; 70450; 71045; 71275; 80048; 80053; 80202; 81001; 82306; 82565; 82728; 82805; 82962; 83036; 83605; 83615; 83735; 83880; 84100; 84439; 84443; 84484; 85025; 85379; 85610; 85730; 86141; 86850; 86900; 86901; 87040; 87070; 87077; 87081; 87086; 87088; 87186; 87205; 87426; 87804; 93005; 94002; 94003; 94640; 94668; 96365; 96367; 96375; 99152; 99153; 99291; A4605; C9113; G0378; J0330; J0696; J1100; J1450; J1815; J2250; J7060

== ENCOUNTER 2025-03-04 19:36 | Emergency (ER) | payer BC ==
[~2025-03-04] VITALS: Ht 165.1 cm; Wt 133.9 kg
[2025-03-04 20:35] LABS: Hematocrit 44.3 % (41.0-53.0); Hemoglobin 15.2 g/dL (13.5-17.5); Mean Corpuscular Hemoglobin 30.3 pg (28.0-32.0); Mean Corpuscular Volume 88.4 fL (80.0-100.0); Nucleated Red Blood Cells % 0.1 %
[2025-03-04 20:50] LABS: Alanine Aminotransferase 21 U/L (7-40); Albumin 4.3 g/dL (3.2-4.8); Alkaline Phosphatase 80 U/L (46-116); Anion Gap 9 (5-15); BUN/Creatinine Ratio 14.1 (10.0-20.0); Bilirubin, Total 0.3 mg/dL (0.2-1.0); Blood Urea Nitrogen 18 mg/dL (9-23); Calcium 9.4 mg/dL (8.7-10.4); Carbon Dioxide 27 mmol/L (20-31); Chloride 101 mmol/L (98-107); Lipase 49 U/L (12-53); Potassium 4.3 mmol/L (3.5-5.1); Sodium 137 mmol/L (136-145); Total Protein 8.0 g/dL (5.7-8.2)
--- NOTE | 2025-03-04 20:50 | DVH ---
Exam: CT CT AB PEL WO CON-NO ORAL OR IV History: left flank pain, h/o kidney stones Comparison Study: None TECHNIQUE: Multidetector CT of the abdomen AND PELVIS without IV contrast. Axial, coronal and sagitta l multiplanar reformats were obtained from the axial data set by the technologist. Radiation Dose Information: CT Dose: CTDI volume is 26.57 mGy. Dose-length product is 1726.9 cm mGy*cm FINDINGS: Bibasilar atelectasis. Partially visualized heart is unremarkable. Status post cholecystectomy. Hepatic steatosis. Otherwise, liver, spleen, pancreas and adrenal glands unremarkable. 2.3 cm right renal cyst. Otherwise, the right kidney and ureter unremarkable. Mild right hydroureter onephrosis with a 1 x 0.5 cm calculus of the left ureterovesical junction/distal ureter and associate d mild left-sided perinephric and periureteral fat stranding. Limited evaluation of the urinary bladd er due to inadequate distention. Prostate is unremarkable. Stomach is unremarkable. Small bowel loops unremarkable. Appendix is unremarkable. Small to moderate amount of fecal material within the colon. No evidence of intraperitoneal free air or free fluid. No evidence of aortic aneurysm . Mild atherosclerotic calcification of the aorta. No significant lymphadenopathy. Tiny fat containing umbilical hernia. The soft tissues unremarkable. Evidence of acute osseous abnor malities. IMPRESSION: 1 x 0.5 cm obstructing calculus of the left ureterovesical junction/distal ureter with associated mil d left-sided hydroureteronephrosis. Hepatic steatosis. Small right renal cyst.
[2025-03-04 20:51] LABS: Glucose 305 mg/dL (74-106)
[2025-03-04 22:03] VITALS: BP 148/85; PULSE 84; RESP 20; TEMP 98.1
[2025-03-04] MEDS: TAMSULOSIN HYDROCHLORIDE 0.4 MG CAP PO ONE (22:14)
[2025-03-04] MEDS: ONDANSETRON ODT 4 MG TAB PO ONE (22:14)
[2025-03-04] MEDS: ACETAMINOPHEN 325 MG TAB PO ONE (22:15)
[2025-03-04] MEDS: KETOROLAC TROMETH 60MG/2ML VIAL IM ONE (22:15)
[2025-03-04] MEDS: LIDOCAINE 5% TOPICAL PATCH TOP ONE (22:16)
--- NOTE | 2025-03-04 23:01 | ED.PDOC ---
History of Present Illness HPI Comments 59-year-old male with past medical history of kidney stones presenting for evaluation of sudden onset left flank pain which started earlier this evening. Patient reports pain that is increasing. Some nausea, no vomiting. No dysuria, hematuria. Patient reports having had similar discomfort in the past many years ago when he had a kidney stone. Denies any chest pain. No radiation of discomfort down to legs. Chief Complaint: Flank Pain Time Seen by MD: 19:50 Allergies: Coded Allergies: NO KNOWN ALLERGIES (Unverified , 05/15/11) Home Meds Active Scripts Hydrocodone-Acetaminophen (Hydrocodone Bitartrate/AC 5-325 mg) 1 Tab Tab, 1 TAB PO Q6HPRN PRN for 3 Days, #12 TAB Prov:ANNA FRENCH MD 03/04/25 Ondansetron HCl (Ondansetron) 4 Mg Tab, 4 MG PO Q6HPRN PRN for 3 Days, #12 TAB Prov:ANNA FRENCH MD 03/04/25 Tamsulosin Hcl (Tamsulosin Hcl) 0.4 Mg Cap, 1 CAP PO DAILY for 14 Days, #14 CAP 5 Refills Prov:ANNA FRENCH MD 03/04/25 Ibuprofen Micronized (Ibuprofen) 800 Mg Tab, 800 MG PO Q8HPRN PRN for 10 Days, #30 TAB Prov:ANNA FRENCH MD 03/04/25 Information Source: Patient Mode of Arrival: Ambulatory Past Medical History PAST MEDICAL HISTORY: Kidney Stones Surgical History: Appendectomy Family History Family History: Reviewed,noncontributory to illness Social History Smoker: Non-Smoker Alcohol: Denies ETOH Use Drugs: Denies Drug Use Lives In: Home Constitutional: denies: chills, diaphoresis, fatigue, fever, malaise, sweats, weakness, others EENTM: denies: blurred vision, double vision, ear bleeding, ear discharge, ear drainage, ear pain, ear ringing, eye pain, eye redness, hearing loss, mouth pain, mouth swelling, nasal discharge, nose bleeding, nose congestion, nose pain, photophobia, tearing, throat pain, throat swelling, voice changes, others Respiratory: denies: cough, hemoptysis, orthopnea, SOB at rest, shortness of breath, SOB with excertion, stridor, wheezing, others Cardiovascular: denies: chest pain, dizzy spells, diaphoresis, Dyspnea on exertion, edema, irregular heart beat, left arm pain, lightheadedness, palpitations, PND, syncope, others Gastrointestinal: reports: nausea Genitourinary: reports: dysuria Neurological: denies: dizziness, fainting, headache, left sided numbness, left sided weakness, numbness, paresthesia, pre-existing deficit, right sided numbness, right sided weakness, seizure, speech problems, tingling, tremors, weakness, others Musculoskeletal: reports: back pain Integumetry: denies: bruises, change in color, change in hair/nails, dryness, laceration, lesions, lumps, rash, wounds, others Allergic/Immunocompromised: denies: Difficulty Healing, Frequent Infections, Hives, Itching, others Hematologic/Lymphatic: denies: anemia, blood clots, easy bleeding, easy brui sing, swollen glands, others Endocrine: denies: excessive hunger, excessive sweating, excessive thirst, ex cessive urination, flushing, intolerance to cold, intolerance to heat, unexplained weight gain, unexplained weight loss, others Psychiatric: denies: anxiety, bipolar disorder, depression, hopeless, panic disorder, schizophrenia, sleepless, suicidal, others Physical Exam General Appearance: None HEENT: Normal ENT Inspection Neck: None Respiratory: No Accessory Muscle Use, No Respiratory Distress, Normal Breath Sounds Cardiovascular: No Edema Breast Exam: Deferred Gastrointestinal: Non Tender, Soft Genitalia: Deferred Pelvic: Deferred Rectal: Deferred Extremities: Normal range of motion Neurologic: Alert, clinical scientist II-XII nml as Tested Cerebellar Function: NOT DONE Reflexes: NOT DONE Skin: NOT DONE Lymphatic: No Adenopathy Was a procedure done? Was a procedure done?: No Differential Dx Considerations may include: Lumbar muscle spasm versus renal colic versus urinary tract infection versus pyelonephritis X-Ray, Labs, Meds, VS Vital Signs Date Time Temp Pulse Resp B/P (MAP) Pulse Ox O2 Delivery O2 Flow Rate FiO2 03/04/25 22:03 98.1 84 20 148/85 (106) 94 98.1 03/04/25 19:43 97.4 93 16 169/97 94 97.4 Lab Test 03/04/25 23:11 03/04/25 20:06 Range/Units Urine Color Light-yellow Yellow Urine Clarity Clear Clear Urine pH 5.0 5.0-9.0 Urine Specific [place] 1.030 1.001-1.035 Urine Protein Negative Negative Urine Ketones Negative Negative Urine Blood 1+ H Negative /uL Urine Nitrite Negative Negative Urine Bilirubin Negative Negative Urine Urobilinogen Normal Negative mg/dL Urine Leukocyte Esterase Trace Negative /uL Urine RBC 8 0 - 3 /hpf Urine Microscopic WBC 29 H 0-3 /HPF Urine Squamous Epithelial Cells Few <5 /hpf Urine Bacteria None seen None Seen /hpf Urine Glucose 4+ H Normal mg/dL White Blood Count 10.0 4.4-10.8 10^3/uL Red Blood Count 5.02 4.5-5.90 10^6/uL Hemoglobin 15.2 13.5-17.5 g/dL Hematocrit 44.3 41.0-53.0 % Mean Corpuscular Volume 88.4 80.0-100.0 fL Mean Corpuscular Hemoglobin 30.3 28.0-32.0 pg Mean Corpuscular Hemoglobin Concent 34.3 32.0-36.0 g/dL Red Cell Distribution Width 13.8 11.8-14.3 % Platelet Count 241 140-450 10^3/uL Mean Platelet Volume 8.3 6.9-10.8 fL Neutrophils (%) (Auto) 55.5 37.0-80.0 % Lymphocytes (%) (Auto) 33.8 10.0-50.0 % Monocytes (%) (Auto) 8.6 0.0-12.0 % Eosinophils (%) (Auto) 1.6 0.0-7.0 % Basophils (%) (Auto) 0.5 0.0-2.0 % Neutrophils # (Auto) 5.5 1.6-8.6 10 ^3/uL Lymphocytes # (Auto) 3.4 0.4-5.4 10 ^3/uL Monocytes # (Auto) 0.9 0-1.3 10 ^3/uL Eosinophils # (Auto) 0.2 0-0.8 10 ^3/uL Basophils # (Auto) 0 0-0.2 10 ^3/uL Nucleated Red Blood Cells 0.1 % Sodium Level 137 136-145 mmol/L Potassium Level 4.3 3.5-5.1 mmol/L Chloride Level 101 98-107 mmol/L Carbon Dioxide Level 27 20-31 mmol/L Anion Gap 9 5-15 Blood Urea Nitrogen 18 9-23 mg/dL Creatinine 1.28 0.700-1.30 mg/dL Glomerular Filtration Rate Calc 64 >90 mL/min BUN/Creatinine Ratio 14.1 10.0-20.0 Serum Glucose 305 H 74-106 mg/dL Calcium Level 9.4 8.7-10.4 mg/dL Total Bilirubin 0.3 0.2-1.0 mg/dL Aspartate Amino Transferase (AST) 21 13-40 U/L Alanine Aminotransferase (ALT) 21 7-40 U/L Alkaline Phosphatase 80 46-116 U/L Total Protein 8.0 5.7-8.2 g/dL Albumin 4.3 3.2-4.8 g/dL Lipase 49 12-53 U/L Current Medications Medications (Trade) Dose Ordered Sig/Brielle Route Start Time Stop Time Status Last Admin Ketorolac Tromethamine (Toradol Injection) 30 mg ONCE ONCE IM 03/04/25 20:00 03/04/25 20:03 DC 03/04/25 22:15 Acetaminophen (Tylenol Tablet) 1,000 mg ONCE ONCE PO 03/04/25 20:00 03/04/25 20:03 DC 03/04/25 22:15 Ondansetron HCl (Zofran Po) 4 mg ONCE ONCE PO 03/04/25 20:00 03/04/25 20:03 DC 03/04/25 22:14 Lidocaine (Lidoderm 5% Topical Patch) 1 patch ONCE ONCE TOP 03/04/25 20:00 03/04/25 20:03 DC 03/04/25 22:16 Tamsulosin HCl (Flomax) 0.4 mg ONCE ONCE PO 03/04/25 21:30 03/04/25 21:31 DC 03/04/25 22:14 Time of 1ST Reevaluation: 22:57 (Reporting improvement of discomfort) Reevaluation 1ST: Resolved Patient Education/Counseling: Diagnosis, Treatment Family Education/Counseling: No Family Present SEPSIS Sepsis Screen Date sepsis recognized/suspect: Mar 04, 2025 Time Sepsis recognized/suspect: 1944 Recent Procedure: No On Antibiotic Therapy: No Respiratory Rate >20: No Heart Rate >90: No Temp<36 C (96.8 F) or >38.3 C: No SBP <90 or MAP <65 mmHG: No New Acute Mental Status Change: No Is the patient on CPAP, BIPAP,: No Physician Orders Ct Ab Pel Wo Con-No Oral Or Iv (03/04/25 20:00) Vital Signs Date Time Temp Pulse Resp B/P (MAP) Pulse Ox O2 Delivery O2 Flow Rate FiO2 03/04/25 22:03 98.1 84 20 148/85 (106) 94 98.1 03/04/25 19:43 97.4 93 16 169/97 94 97.4 Laboratory Tests Test 03/04/25 20:06 White Blood Count 10.0 10^3/uL (4.4-10.8) Medications Medications Dose Ordered Sig/Brielle Route Start Time Stop Time Status Last Admin Dose Admin Acetaminophen 1,000 mg ONCE ONCE PO 03/04/25 20:00 03/04/25 20:03 DC 03/04/25 22:15 Ketorolac Tromethamine 30 mg ONCE ONCE IM 03/04/25 20:00 03/04/25 20:03 DC 03/04/25 22:15 Lidocaine 1 patch ONCE ONCE TOP 03/04/25 20:00 03/04/25 20:03 DC 03/04/25 22:16 Ondansetron HCl 4 mg ONCE ONCE PO 03/04/25 20:00 03/04/25 20:03 DC 03/04/25 22:14 Tamsulosin HCl 0.4 mg ONCE ONCE PO 03/04/25 21:30 03/04/25 21:31 DC 03/04/25 22:14 Departure 1 Departure Time of Disposition: 22:58 (59-year-old male with past medical history of kidney stones presenting for evaluation of sudden onset left flank, back pain and associated nausea. Given the location of discomfort could be consistent with lumbar muscle spasm, muscular pain. Given the patient's sudden onset left flank pain with nausea and a history of nephrolithiasis could be consistent with renal colic. Patient with no specific urinary symptoms, no dysuria, hematuria, does not seem consistent with UTI. Patient is afebrile here, has no true CVA tenderness, does not seem consistent with pyelonephritis. CBC with no evidence of critical leukocytosis or significant anemia. Metabolic panel is notable for hyperglycemia, however, normal bicarb, does not seem consistent with DKA. A CT of the abdomen and pelvis was performed which shows that patient has a left- sided mildly obstructing ureteral stone with some mild left-sided hydronephrosis, hydroureter. Urinalysis shows many red blood cells, related to nephrolithiasis. Has only trace leukocyte esterase and some white blood cells, likely related to inflammation, irritation from nephrolithiasis. Does not seem consistent with infected stone, does not require antibiotics. CT imaging explains the patient's symptoms. Patient was treated for discomfort with IM Toradol, oral Tylenol, topical lidocaine patch, oral Flomax and oral Zofran. Upon reassessment patient's pain has resolved. Given that patient has normal kidney function and pain has resolved patient seems suitable for discharge for further outpatient management. Will be given a prescription for ibuprofen, Yoder, Flomax, Zofran. Advised that he needs to follow up primary care doctor and urologist in case the stone does not pass and he needs interventions. However, given strict return precautions indicates symptoms progress despite outpatient management.) Impression: Primary Impression: Renal colic on left side Additional Impressions: Hydroureter on left Hydronephrosis of left kidney Disposition: 01 HOME / SELF CARE / HOMELESS Condition: Stable Additional Instructions: Your CT scan that was performed today shows a you have a kidney stone which is likely the cause of your symptoms today. Please be aware that you will likely pass the stone on its own. You have been given a prescription for ibuprofen, Yoder to take as needed for pain. You were also given a prescription for a 2 week course of tamsulosin which will help you pass the stone. You must follow- up with their primary care doctor and a urologist for re-evaluation. If you do not pass the stone on its own you may need interventions by Urology as an outpatient. Return to the emergency department if you start to spike fevers, develop worsening pain not controlled with home medications, or any other con cerning symptoms. e-Prescriptions Hydrocodone-Acetaminophen (Hydrocodone Bitartrate/AC 5-325 mg) 1 Tab Tab 1 TAB PO Q6HPRN PRN for 3 Days, #12 TAB Prov: ANNA FRENCH MD 03/04/25 Ondansetron HCl (Ondansetron) 4 Mg Tab 4 MG PO Q6HPRN PRN for 3 Days, #12 TAB Prov: ANNA FRENCH MD 03/04/25 Tamsulosin Hcl (Tamsulosin Hcl) 0.4 Mg Cap 1 CAP PO DAILY for 14 Days, #14 CAP 5 Refills Prov: ANNA FRENCH MD 03/04/25 Ibuprofen Micronized (Ibuprofen) 800 Mg Tab 800 MG PO Q8HPRN PRN for 10 Days, #30 TAB Prov: ANNA FRENCH MD 03/04/25 Discharged With: Self Critical Care Note Critical Care Time?: No Stability Stability form required: No ANNA FRENCH MD Mar 04, 2025 23:01
[2025-03-04] MEDS ORDERED: TAMS0.4C39 PO (23:35)
[2025-03-04] MEDS ORDERED: IBUP-1455 PO (23:35)
[2025-03-04] MEDS ORDERED: ONDA-155 PO (23:35)
[2025-03-04] MEDS ORDERED: HYDR-4902 PO (23:35)
[2025-03-04 23:43] LABS: Urine Protein, UAD Negative (Negative)
[2025-03-05 01:00] VITALS: O2SAT 98
== END 2025-03-05 01:40 | disposition home or self-care (01) ==
LOC: ER 19:43
DX: N23 Unspecified renal colic (principal); N13.4 Hydroureter; N13.2 Hydronephrosis with renal and ureteral calculous obstruction; Z79.899 Other long term (current) drug therapy; Z90.49 Acquired absence of other specified parts of digestive tract; Z87.442 Personal history of urinary calculi
CPT/HCPCS: 36415; 74176; 80053; 81001; 83690; 85025; 96372; 99285; J1885; Q0162